=== PATIENT | male | born 1975 | race Two or more races ===

== ENCOUNTER 2021-10-18 11:39 | Outpatient (REF) | payer OTHER, SELFPAY ==
[2021-10-18 14:12] LABS: COVID-19 Test Positive (Negative)
== END 2021-10-18 11:40 | disposition home or self-care (01) ==
LOC: HO.LAB 11:39
PROVIDERS: Visit Provider Internal Medicine
DX: Z20.822 Contact with and (suspected) exposure to COVID-19 (principal)
CPT/HCPCS: 87635; C9803

== ENCOUNTER 2022-12-17 09:28 | Outpatient (REF) | payer OTHER, SELFPAY ==
--- NOTE | ~2022-12-17 | XR_ITS ---
EXAMINATION: XR FOOT, BILATERAL XR HAND/WRIST, BILATERAL CLINICAL INDICATION: Rheumatoid arthritis. Pain. COMPARISON: None. TECHNIQUE: 3 views each foot and 4 views each hand/wrist. FINDINGS: LEFT FOOT: The IP and MCP joint spaces are maintained normal. No bony erosive changes. The ankle mortise and subtalar joints are normal. There is a moderate size calcaneal heel and retrocalcaneal spurs. RIGHT FOOT: The interphalangeal and MCP joints are maintained normal. No visible acute fracture or dislocation seen. The ankle mortise and subtalar joints are normal. A small calcaneal heel and a large retrocalcaneal enthesophyte. LEFT HAND/WRIST: There is an old ulnar styloid process fracture. The carpal bones, carpometacarpal and interphalangeal joints are maintained normal. Mild reduction in the PIP and DIP joint spaces with mild periarticular spurring 2nd and 3rd joints. No visible acute fracture or bony abnormality. The soft tissues are normal. RIGHT HAND/WRIST: The right hand and wrist joints are maintained normal.. There is mild degenerative periarticular spurring DIP joint 5th digit. No acute fracture or dislocation seen. XR/XR foot RT min 3V IMPRESSION: 1. Unremarkable bilateral foot exam. 2. Mild degenerative changes DIP joints as described above in both hands. 3. Old ulnar styloid process fracture left hand. No acute fracture or dislocation seen.
--- NOTE | ~2022-12-17 | XR_ITS ---
EXAMINATION: XR FOOT, BILATERAL XR HAND/WRIST, BILATERAL CLINICAL INDICATION: Rheumatoid arthritis. Pain. COMPARISON: None. TECHNIQUE: 3 views each foot and 4 views each hand/wrist. FINDINGS: LEFT FOOT: The IP and MCP joint spaces are maintained normal. No bony erosive changes. The ankle mortise and subtalar joints are normal. There is a moderate size calcaneal heel and retrocalcaneal spurs. RIGHT FOOT: The interphalangeal and MCP joints are maintained normal. No visible acute fracture or dislocation seen. The ankle mortise and subtalar joints are normal. A small calcaneal heel and a large retrocalcaneal enthesophyte. LEFT HAND/WRIST: There is an old ulnar styloid process fracture. The carpal bones, carpometacarpal and interphalangeal joints are maintained normal. Mild reduction in the PIP and DIP joint spaces with mild periarticular spurring 2nd and 3rd joints. No visible acute fracture or bony abnormality. The soft tissues are normal. RIGHT HAND/WRIST: The right hand and wrist joints are maintained normal.. There is mild degenerative periarticular spurring DIP joint 5th digit. No acute fracture or dislocation seen. XR/XR hand wrist LT IMPRESSION: 1. Unremarkable bilateral foot exam. 2. Mild degenerative changes DIP joints as described above in both hands. 3. Old ulnar styloid process fracture left hand. No acute fracture or dislocation seen.
--- NOTE | ~2022-12-17 | XR_ITS ---
EXAMINATION: XR FOOT, BILATERAL XR HAND/WRIST, BILATERAL CLINICAL INDICATION: Rheumatoid arthritis. Pain. COMPARISON: None. TECHNIQUE: 3 views each foot and 4 views each hand/wrist. FINDINGS: LEFT FOOT: The IP and MCP joint spaces are maintained normal. No bony erosive changes. The ankle mortise and subtalar joints are normal. There is a moderate size calcaneal heel and retrocalcaneal spurs. RIGHT FOOT: The interphalangeal and MCP joints are maintained normal. No visible acute fracture or dislocation seen. The ankle mortise and subtalar joints are normal. A small calcaneal heel and a large retrocalcaneal enthesophyte. LEFT HAND/WRIST: There is an old ulnar styloid process fracture. The carpal bones, carpometacarpal and interphalangeal joints are maintained normal. Mild reduction in the PIP and DIP joint spaces with mild periarticular spurring 2nd and 3rd joints. No visible acute fracture or bony abnormality. The soft tissues are normal. RIGHT HAND/WRIST: The right hand and wrist joints are maintained normal.. There is mild degenerative periarticular spurring DIP joint 5th digit. No acute fracture or dislocation seen. XR/XR foot LT min 3V IMPRESSION: 1. Unremarkable bilateral foot exam. 2. Mild degenerative changes DIP joints as described above in both hands. 3. Old ulnar styloid process fracture left hand. No acute fracture or dislocation seen.
--- NOTE | ~2022-12-17 | XR_ITS ---
EXAMINATION: XR FOOT, BILATERAL XR HAND/WRIST, BILATERAL CLINICAL INDICATION: Rheumatoid arthritis. Pain. COMPARISON: None. TECHNIQUE: 3 views each foot and 4 views each hand/wrist. FINDINGS: LEFT FOOT: The IP and MCP joint spaces are maintained normal. No bony erosive changes. The ankle mortise and subtalar joints are normal. There is a moderate size calcaneal heel and retrocalcaneal spurs. RIGHT FOOT: The interphalangeal and MCP joints are maintained normal. No visible acute fracture or dislocation seen. The ankle mortise and subtalar joints are normal. A small calcaneal heel and a large retrocalcaneal enthesophyte. LEFT HAND/WRIST: There is an old ulnar styloid process fracture. The carpal bones, carpometacarpal and interphalangeal joints are maintained normal. Mild reduction in the PIP and DIP joint spaces with mild periarticular spurring 2nd and 3rd joints. No visible acute fracture or bony abnormality. The soft tissues are normal. RIGHT HAND/WRIST: The right hand and wrist joints are maintained normal.. There is mild degenerative periarticular spurring DIP joint 5th digit. No acute fracture or dislocation seen. XR/XR hand wrist RT IMPRESSION: 1. Unremarkable bilateral foot exam. 2. Mild degenerative changes DIP joints as described above in both hands. 3. Old ulnar styloid process fracture left hand. No acute fracture or dislocation seen.
[2022-12-17 11:13] LABS: MANUAL DIFF FLAG NO
[2022-12-17 11:40] LABS: Basophils Absolute Auto 0.1 X10*3/uL (0.0-0.2); Basophils Percent Auto 0.7 % (0-2); Eosinophils Absolute Auto 0.7 X10*3/uL (0.0-0.4); Eosinophils Percent Auto 7.4 % (0-4); Hematocrit 41.5 % (42.0-52.0); Hemoglobin 13.9 g/dl (14.0-18.0); Imm Gran Abs Auto 0.11 X10*3/uL (0.00-0.03); Imm Gran Pct Auto 1.2 % (0.0-0.4); Lymphocytes Absolute Auto 1.4 X10*3/uL (1.2-4.9); Lymphocytes Percent Auto 15.6 % (20-40); Mean Corpuscular HGB Conc 33.5 g/dl (31.0-36.0); Mean Corpuscular Hemoglobin 28.4 pg (27.0-33.0); Mean Corpuscular Volume 84.7 fL (80.0-98.0); Mean Platelet Volume 9.7 fL (9.4-12.4); Monocytes Absolute Auto 0.5 X10*3/uL (0.1-1.2); Monocytes Percent Auto 5.3 % (2-11); Neutrophils Absolute Auto 6.3 x10*3/uL (2.0-8.3); Neutrophils Percent Auto 69.8 % (45-73); Platelet Count 268 X10*3/uL (160-400); Red Cell Distribution Width 14.6 % (11.0-16.0); White Blood Count 9.1 X10*3/uL (4.8-10.8)
[2022-12-17 11:42] LABS: Appearance Urine Clear; Color Urine Yellow; Glucose Urine UA Negative (Negative); Leukocyte Esterase Urine Negative (Negative); Nitrite Urine Negative (Negative); PH 5.5 (5.0-9.0); Specific Gravity - Urine 1.015 (1.005-1.025); Urine Blood Negative (Negative); Urine Ketones Negative (Negative); Urine Protein Negative (Neg-Trace)
[2022-12-17 11:45] LABS: Bacteria Urine None Seen (None Seen); Hyaline Casts Urine 0-2 /LPF (0-2); RBC Urine 0-2 /HPF (0-2); Squamous Epithelial Cell Urine 0-2 /HPF (0-2); WBC Urine 0-5 /HPF (0-5)
[2022-12-17 12:08] LABS: Creatinine Urine 156.02 mg/dL; Total Protein Urine Random < 7 mg/dL (<12)
[2022-12-17 12:40] LABS: Erythrocyte Sedimentation Rate 14 MM/HR (0-15)
[2022-12-17 13:11] LABS: Alanine Aminotransferase 56 U/L (0-40); Albumin Level 4.3 g/dL (3.5-5.0); Alkaline Phosphatase 71 U/L (39-117); Anion Gap 13 (12-20); Aspartate Amino Transferase 27 U/L (5-37); Bilirubin Total 0.8 mg/dL (0.0-1.0); Blood Urea Nitrogen 14 mg/dL (9-16); C Reactive Protein 0.38 mg/dL (< or = 0.50); Calcium 8.9 mg/dL (8.4-10.2); Carbon Dioxide 27 mmol/L (22-29); Chloride 106 mmol/L (96-108); Estimated Glomerular Filt Rate > 60; Glucose Random 89 mg/dL (60-115); Potassium 4.1 mmol/L (3.3-5.1); Rheumatoid Factor < 13.0 IU/mL (<15.0); Sodium 142 mmol/L (135-145); Total Protein 6.9 g/dL (6.5-8.0)
[2022-12-17 14:21] LABS: Estimated Average Glucose 105 mg/dL; Hemoglobin A1c % 5.3 %
[2022-12-18 04:28] LABS: HBS Num1 0.04 mIU/mL (0-7.99); HBc Num1 0.04 S/CO (0.00-0.79); HBsAGNum1 0.31 S/CO (0.00-0.99); Hepatitis A Antibody IgM 0.19 Index (0-0.79); Hepatitis B Core Antibody Nonreactive (Nonreactive); Hepatitis B Surface Antigen Negative (Negative); ~HepC Num1 0.08 S/CO (0.00-0.79); ~Hepatitis A Antibody IgM Nonreactive (Nonreactive); ~Hepatitis B Surface Antibody NONREACTIVE (Nonreactive); ~Hepatitis C Antibody Nonreactive (Nonreactive)
[2022-12-18 15:09] LABS: IgA 241 mg/dL (47-310); IgG 1007 mg/dL (600-1640); IgM 67 mg/dL (50-300)
[2022-12-18 20:43] LABS: Anti DNA DS Antibody 8 IU/mL; Antibody to SS-A Antigen <1.0 NEG AI (<1.0 NEG); Antibody to SS-B Antigen <1.0 NEG AI (<1.0 NEG); SM/Ribonucleoprotein Ab <1.0 NEG AI (<1.0 NEG); Smith Protein <1.0 NEG AI (<1.0 NEG)
[2022-12-19 09:28] LABS: Complement C3 159 mg/dL (82-185)
[2022-12-19 11:48] LABS: Cyclic Citrullinated Peptide <16 UNITS
[2022-12-19 19:18] LABS: Prot Elec - Albumin 4.3 g/dL (3.8-4.8); Prot Elec - Alpha1 0.2 g/dL (0.2-0.3); Prot Elec - Alpha2 0.8 g/dL (0.5-0.9); Prot Elec - Beta 1 0.4 g/dL (0.4-0.6); Prot Elec - Beta 2 0.4 g/dL (0.2-0.5); Prot Elec - Total Protein 7.1 g/dL (6.1-8.1)
[2022-12-20 06:13] LABS: PTT (LAC) Screen 35 sec (<=40)
[2022-12-21 12:28] LABS: DNAds, Crithidia Antibody Negative (Negative)
[2022-12-23 12:57] LABS: Anti Nuclear Antibody Screen POSITIVE (NEGATIVE)
[2022-12-23 21:09] LABS: Beta-2 Glycoprotein IgA 4.6 U/mL (<20.0); Beta-2 Glycoprotein IgG <2.0 U/mL (<20.0); Beta-2 Glycoprotein IgM <2.0 U/mL (<20.0)
[2022-12-29 16:19] LABS: Cardiolipin IgG Ab <2.0 GPL-U/mL (<20.0); Cardiolipin IgM Ab <2.0 MPL-U/mL (<20.0)
== END 2022-12-17 09:29 | disposition home or self-care (01) ==
LOC: HO.LAB 09:28
PROVIDERS: PCP Physician Assistant Medical; Visit Provider Student in an Organized Health Care Education/Training Program
DX: Z11.59 Encounter for screening for other viral diseases (principal); Z13.1 Encounter for screening for diabetes mellitus; D68.61 Antiphospholipid syndrome; M32.9 Systemic lupus erythematosus, unspecified; M25.541 Pain in joints of right hand; F41.0 Panic disorder [episodic paroxysmal anxiety]; M06.9 Rheumatoid arthritis, unspecified; R76.8 Other specified abnormal immunological findings in serum; M1A.09X0 Idiopathic chronic gout, multiple sites, without tophus (tophi)
CPT/HCPCS: 36415; 73110; 73130; 73630; 80053; 81001; 82550; 82784; 83036; 84156; 84165; 84550; 85025; 85597; 85613; 85652; 85730; 86038; 86039; 86140; 86146; 86147; 86160; 86200; 86225; 86235; 86255; 86334; 86431; 86704; 86706; 86709; 86803; 87340; 99202

== ENCOUNTER → 2023-01-29 10:12 | Outpatient (BNVA) | payer OTHER, SELFPAY | PROVIDERS: PCP Physician Assistant Medical; Visit Provider Student in an Organized Health Care Education/Training Program | DX: R76.8 Other specified abnormal immunological findings in serum (principal); M1A.09X0 Idiopathic chronic gout, multiple sites, without tophus (tophi); M79.7 Fibromyalgia | CPT/HCPCS: 99212 ==

== ENCOUNTER 2023-05-06 10:35 | Outpatient (AMB) | payer OTHER, SELFPAY ==
[2023-05-06 10:41] VITALS: BP 110/72; PULSE 84; RESP 18; TEMP 36.9; O2SAT 98; BMI 33.1
--- NOTE | 2023-05-06 10:41 | A.OFFVIS_ITS ---
Intake Vital Signs 05/06/23 10:41 Height 5 ft 8 in Weight 218 lb BMI 33.1 BP 110/72 Blood Pressure Location Rt brachial Position Sitting Respiration 18 Pulse 84 Pulse Source Pulse Oximeter Temp 98.4 F Temp Source Temporal Artery Scan Pulse Oximetry (%) 98 Oxygen Delivery Method Room Air Intake Visit Reasons: KRISTAN +ve - Confirmed Allergies propylene glycol Allergy (Verified 05/06/23 10:50) Rash Medication List - Last Reconciled 05/06/23 by Caleb Cavanaugh MD allopurinol 300 mg PO DAILY cetirizine 10 mg PO DAILY duloxetine 60 mg (2 x 30 mg) PO .nightly hydrocortisone 5 mg PO QID levothyroxine 75 mcg PO DAILY lisinopril 20 mg PO DAILY rituximab-pvvr IV HPI HPI Comments History of Present Illness Details 47-year-old male with positive KRISTAN/ITP returns for follow-up. Patient stated that he is currently taking duloxetine 60 mg nightly which seems to be at least somewhat helpful. Continues to have diffuse pain however. Initial history: 47-year-old male with a past medical history of ITP presents for evaluation of diffuse pain. Patient has had diffuse pain for years. Specially affecting his hands, wrists, ankles, feet. In 2020 he presented the hospital with petechial hemorrhages and severe thrombocytopenia. He was diagnosed with ITP. He was started on steroids and IVIG. He relapsed 2 weeks after IVIG and required rituximab. He got rituximab in the fall of 2020 and had another round of 4 weekly doses of rituximab completed 2 weeks ago. Over the last year patient has been having worsening fatigue and pain. His labs showed low free T4. He was eventually evaluated by Endocrinology in an MRI of the brain showed multiple pituitary micro adenomas. He was started on hydrocortisone and levothyroxine with some improvement of his symptoms. Patient states that he gets intermittent swelling of his wrists and knuckles. He states that overall he feels better. Feels that duloxetine might have helped with his anxiety and depression. He cannot really tell whether it helped his joints. He denies any skin rashes. Denies any blood or frothy urine. His grandmother had rheumatoid arthritis. Years history of submandibular gland stone, was evaluated by ENT and was advised against any intervention. States he was diagnosed with gout more than 20 years ago and has not had any gout flares in a long time except for 1 flare last fall. 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 Review of Systems Const Reports fatigue and Reports weakness Musc Reports arthralgias and Reports muscle weakness Neuro Reports weakness Endo Reports fatigue Physical Exam Vital Signs: Last Vital Signs Temp 98.4 F 05/06/23 10:41 Pulse 84 05/06/23 10:41 Resp 18 05/06/23 10:41 BP 110/72 05/06/23 10:41 Pulse Ox 98 05/06/23 10:41 Oxygen Delivery Method Room Air 05/06/23 10:41 BMI result Body Mass Index 33.1 Const General: cooperative, healthy appearing and comfortable Nutritional Appearance: obese Orientation/consciousness: patient oriented x3 Limitations: no limitations HEENT Other: Mildly dry oral mucosa Head: Yes normocephalic and Yes atraumatic Resp Effort & Inspection: normal respiratory effort and able to speak in complete sentences Neuro General: patient oriented x3 Extrem Other: Right wrist tenderness to palpation and pain with full flexion and full extension Extensor tendon tenderness bilaterally Left wrist pain with full flexion and extension 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 lost response after 2 weeks. RTX (4 weekly doses given in 06/2021 & 11/28) HCQ 05/28 Code(s): R76.8 - Other specified abnormal immunological findings in serum Plan: This is a 47-year-old male with complex past medical history including anxiety, depression, gout, JULIA, recently diagnosed pituitary microadenomas, ITP was referred for evaluation of a positive KRISTAN and diffuse pain. Upon evaluation patient has multiple tender points consistent with fibromyalgia. However he has more tenderness in his hands and wrists. Bilateral hand ultrasound shows extensor compartment tenosynovitis. Will need to start a DMARD for inflammatory arthritis. Discussed risks and benefits of hydroxychloroquine. Start hydroxychloroquine 200 mg Twice daily He does not have any other signs of active SLE. He has borderline positive dsDNA. However he might not have any overt signs of autoimmune rheumatic disease as he recently received rituximab. (2) Gout: Code(s): M10.9 - Gout, unspecified Qualifiers: Gout site: multiple sites Gout etiology: idiopathic Chronicity: chronic Presence of tophus: without tophus Qualified Code(s): M1A.09X0 - Id iopathic chronic gout, multiple sites, without tophus (tophi) Plan: For patient was diagnosed more than 20 years ago. Has not had flares for years except for 1 flare in the fall of 2021. He has been on allopurinol for many years. Uric acid is 6.0, at target. Continue allopurinol 300 mg daily. Check uric acid before next visit (3) Fibromyalgia, primary: Code(s): M79.7 - Fibromyalgia Plan: We had discussed fibromyalgia management before. I advised patient to keep doing light exercises. Duloxetine 60 mg nightly seems to be at least partially helpful. Continue duloxetine 60 mg nightly Plan I spent 29 minutes reviewing patient's chart, evaluating patient, ordering diagnostic workup, counseling patient and documenting in the chart Orders: Orders Comprehensive Met. Panel 3 Months R76.8 - Other specified abnormal immunological findings in serum C Reactive Protein 3 Months R76.8 - Other specified abnormal immunological findings in serum Protein Creatinine Ratio, Ur 3 Months R76.8 - Other specified abnormal immunological findings in serum Complete Blood Count Auto Diff 3 Months R76.8 - Other specified abnormal immunological findings in serum Erythrocyte Sedimentation Rate 3 Months R76.8 - Other specified abnormal immunological findings in serum Complement C3 3 Months R76.8 - Other specified abnormal immunological findings in serum Complement C4 3 Months R76.8 - Other specified abnormal immunological findings in serum Anti DNA DS Antibody 3 Months R76.8 - Other specified abnormal immunological findings in serum UA w Microscopic 3 Months R76.8 - Other specified abnormal immunological findings in serum Uric Acid 3 Months M10.9 - Gout, unspecified Referrals Ophthalmology Referral [id number] - Other prison (current) drug therapy Medications: New hydroxychloroquine 200 mg PO BID 60 tabs 2RF Coding Level of Care Code Est Pt Level 4 (27311) Diagnoses KRISTAN positive R76.8 Gout M1A.09X0 Gout site: multiple sites Gout etiology: idiopathic Chronicity: chronic Presence of tophus: without tophus Fibromyalgia, primary M79.7
== END 2023-05-06 11:28 | disposition home or self-care (01) ==
PROVIDERS: PCP Physician Assistant Medical; Visit Provider Student in an Organized Health Care Education/Training Program
DX: R76.8 Other specified abnormal immunological findings in serum (principal); M1A.09X0 Idiopathic chronic gout, multiple sites, without tophus (tophi); M79.7 Fibromyalgia
CPT/HCPCS: 99214

== ENCOUNTER → 2023-05-06 10:35 | Outpatient (BNVA) | payer OTHER, SELFPAY | PROVIDERS: PCP Physician Assistant Medical; Visit Provider Student in an Organized Health Care Education/Training Program | DX: M1A.09X0 Idiopathic chronic gout, multiple sites, without tophus (tophi) (principal); M79.7 Fibromyalgia; R76.8 Other specified abnormal immunological findings in serum | CPT/HCPCS: 99212 ==

== ENCOUNTER 2023-08-20 13:39 | Outpatient (AMB) | payer OTHER, SELFPAY ==
[2023-08-20 13:43] VITALS: BP 114/72; PULSE 73; TEMP 36.6; O2SAT 96; BMI 33.9
--- NOTE | 2023-08-20 13:43 | A.OFFVIS_ITS ---
Intake Vital Signs 08/20/23 13:43 Height 5 ft 8 in Weight 222 lb 10.67 oz BMI 33.9 BP 114/72 Blood Pressure Location Rt brachial Position Sitting Pulse 73 Pulse Source Pulse Oximeter Temp 97.9 F Temp Source Skin Pulse Oximetry (%) 96 Intake Visit Reasons: SLE Intake Note: Pt last seen 05/06/23, presents today for follow up and test results. Allopurinol 300mg daily and Plaquenil 200mg bid Anesthesia Director Required: No Accompanied by: Self / Same As Patient Allergies propylene glycol Allergy (Verified 08/20/23 13:45) Rash Medication List - Last Reconciled 08/20/23 by Caleb Cavanaugh MD allopurinol 300 mg PO DAILY cetirizine 10 mg PO DAILY duloxetine 60 mg (2 x 30 mg) PO .nightly hydrocortisone 5 mg PO QID hydroxychloroquine 200 mg PO BID levothyroxine 75 mcg PO DAILY lisinopril 20 mg PO DAILY rituximab-pvvr IV HPI HPI Comments History of Present Illness Details 47-year-old male with positive KRISTAN/ITP r eturns for follow-up. Patient started taking hydroxychloroquine 200 mg Twice daily 2 months ago. States that he feels noticeable improvement and his pain and stiffness especially of his hands. He is now able to be more active and open jars. States that he has been having pain in his right heel. He has not had any further rituximab infusions since 11/2022, states that his platelets have been within normal Initial history: 47-year-old male with a past medical history of ITP presents for evaluation of diffuse pain. Patient has had diffuse pain for years. Specially affecting his hands, wrists, ankles, feet. In 2020 he presented the hospital with petechial hemorrhages and severe thrombocytopenia. He was diagnosed with ITP. He was started on steroids and IVIG. He relapsed 2 weeks after IVIG and required rituximab. He got rituximab in the fall of 2020 and had another round of 4 weekly doses of rituximab completed 2 weeks ago. Over the last year patient has been having worsening fatigue and pain. His labs showed low free T4. He was eventually evaluated by Endocrinology in an MRI of the brain showed multiple pituitary micro adenomas. He was started on hydrocortisone and levothyroxine with some improvement of his symptoms. Patient states that he gets intermittent swelling of his wrists and knuckles. He states that overall he feels better. Feels that duloxetine might have helped with his anxiety and depression. He cannot really tell whether it helped his joints. He denies any skin rashes. Denies any blood or frothy urine. His grandmother had rheumatoid arthritis. Years history of submandibular gland stone, was evaluated by ENT and was advised against any intervention. States he was diagnosed with gout more than 20 years ago and has not had any gout flares in a long time except for 1 flare last fall. [facility] Medical History (Updated 08/20/23 @ 14:49 by Caleb Cavanaugh MD) Pituitary microadenoma Idiopathic thrombocytopenic purpura (ITP) Normal endoscopic ultrasound of upper GI tract Gout Panic attacks Depression with anxiety Hypertension Obstructive sleep apnea Elevated liver enzymes Severe obesity Surgical History H/O colonoscopy Family History Mother Gout Arthritis Father CAD (coronary artery disease) Diabetes Hypertension Brother Diabetes Lung cancer Social History Household Members: Spouse and Children Alcohol intake: never Patient Tobacco Use Status: Never used Tobacco 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 Review of Systems Const Reports fatigue and Reports weakness Musc Reports arthralgias and Reports muscle weakness Neuro Reports weakness Endo Reports fatigue Physical Exam Vital Signs: Last Vital Signs Temp 97.9 F 08/20/23 13:43 Pulse 73 08/20/23 13:43 BP 114/72 08/20/23 13:43 Pulse Ox 96 08/20/23 13:43 BMI result Body Mass Index 33.9 Const General: cooperative, healthy appearing and comfortable Nutritional Appearance: obese Orientation/consciousness: patient oriented x3 Limitations: no limitations HEENT Head: Yes normocephalic and Yes atraumatic Resp Effort & Inspection: normal respiratory effort and able to speak in complete sentences Neuro General: patient oriented x3 Extrem Other: Right wrist tenderness to palpation and pain with full flexion and full extension Left wrist pain with full flexion and extension Few tender MCPs and PIPs bilaterally Normal drop forger strength bilaterally Positive MTP squeeze test on the left Right heel tenderness to palpation Diffuse fibromyalgia tender points Results Reviewed Results Reviewed: Labs 07/2022 KRISTAN 1-320 homogeneous Bilateral hand and wrist ultrasound 02/2023 Impression: 1. Mild bilateral tenosynovitis of the 4th extensor compartments, with increased vascularity.?? 2. Trace fluid in the right 4th metacarpophalangeal joint.?? 3. Fluid adjacent to the right flexor tendon of the 3rd MCP/PIP 4. No joint effusion, synovitis or tendinitis Assessment & Plan Assessment & Plan (1) SLE (systemic lupus erythematosus): Comment: ITP dx 05/2021 +KRISTAN + DsDNA, inflammatory arthritis treated with steroids & IVIG. lost response after 2 weeks. RTX (4 weekly doses given in 06/2021 & 11/28) HCQ 06/28 partially effective Code(s): M32.9 - Systemic lupus erythematosus, unspecified Plan: This is a 47-year-old male with mild SLE who presents for follow-up. Started hydroxychloroquine 200 mg Twice daily last visit with noticeable improvement. Continue hydroxychloroquine 200 mg Twice daily for 4 more months. Re-evaluate next visit. Labs before next visit in 4 months (2) Gout: Code(s): M10.9 - Gout, unspecified Qualifiers: Gout site: multiple sites Gout etiology: idiopathic Chronicity: chronic Presence of tophus: without tophus Qualified Code(s): M1A.09X0 - Idiopathic chronic gout, multiple sites, without tophus (tophi) Plan: For patient was diagnosed more than 20 years ago. Has not had flares for years except for 1 flare in the fall of 2021. He has been on allopurinol for many years. Uric acid is 6.0, at target. Continue allopurinol 300 mg daily. Check uric acid before next visit (3) Fibromyalgia, primary: Code(s): M79.7 - Fibromyalgia Plan: We had discussed fibromyalgia management before. I advised patient to keep doing light exercises. Duloxetine 60 mg nightly seems to be at least partially helpful. Continue duloxetine 60 mg nightly (4) Pain of right heel: Code(s): M79.671 - Pain in right foot Plan: Follow-up with Podiatry (5) Long-term use of hydroxychloroquine: Code(s): Z79.899 - Other intermission coordinator (current) drug therapy Plan: Patient stated that he was recently evaluated by [facility]. Was told everything is within normal and scheduled for a follow-up visit in 6 months. Continue to follow-up with ophthalmology Plan I spent 29 minutes reviewing patient's chart, evaluating patient, ordering diagnostic workup, counseling patient and documenting in the chart Medications: Refilled hydroxychloroquine 200 mg PO BID 180 tabs 1RF Coding Level of Care Code Est Pt Level 4 (27364) Diagnoses SLE (systemic lupus erythematosus) M32.9 Idiopathic chronic gout of multiple sites without tophus M1A.09X0 Gout site: multiple sites Gout etiology: idiopathic Chronicity: chronic Presence of tophus: without tophus Fibromyalgia, primary M79.7 Pain of right heel M79.671 Long-term use of hydroxychloroquine Z79.899
== END 2023-08-20 14:19 | disposition home or self-care (01) ==
PROVIDERS: PCP Physician Assistant Medical; Visit Provider Student in an Organized Health Care Education/Training Program
DX: M32.9 Systemic lupus erythematosus, unspecified (principal); M1A.09X0 Idiopathic chronic gout, multiple sites, without tophus (tophi); M79.7 Fibromyalgia; M79.671 Pain in right foot; Z79.899 Other long term (current) drug therapy
CPT/HCPCS: 99214

== ENCOUNTER → 2023-08-20 13:39 | Outpatient (BNVA) | payer OTHER, SELFPAY | PROVIDERS: PCP Physician Assistant Medical; Visit Provider Student in an Organized Health Care Education/Training Program | DX: R76.8 Other specified abnormal immunological findings in serum (principal); D69.3 Immune thrombocytopenic purpura; M1A.09X0 Idiopathic chronic gout, multiple sites, without tophus (tophi); M79.7 Fibromyalgia; M79.671 Pain in right foot; Z79.899 Other long term (current) drug therapy | CPT/HCPCS: 99212 ==

== ENCOUNTER 2023-12-23 13:35 | Outpatient (AMB) | payer OTHER, SELFPAY ==
--- NOTE | 2023-12-23 13:40 | MHC.OFFVIS ---
Intake Vital Signs 12/23/23 13:41 Height 5 ft 8 in Weight 229 lb 15.074 oz BMI 35.0 BP 112/64 Blood Pressure Location Rt brachial Position Sitting Pulse 74 Pulse Source Pulse Oximeter Pulse Oximetry (%) 97 Oxygen Delivery Method Room Air Intake Visit Reasons: SLE Intake Note: Patient last seen 08/20/23 presents today for follow up. Director Outpatient Services Required: No Accompanied by: Spouse, Daughter Allergies propylene glycol Allergy (Verified 12/23/23 13:42) Rash Medication List - Last Reconciled 12/23/23 by Caleb Cavanaugh MD allopurinol 300 mg PO DAILY cetirizine 10 mg PO DAILY duloxetine 60 mg (2 x 30 mg) PO .each night hydrocortisone 5 mg PO QID hydroxychloroquine 200 mg PO BID levothyroxine 75 mcg PO DAILY lisinopril 20 mg PO DAILY prednisone 20 mg PO DAILY rituximab-pvvr IV HPI HPI Comments History of Present Illness Details 47-year-old male with positive KRISTAN/ITP returns for follow-up. He is on hydroxychloroquine 200 mg Twice daily. States that he has done much better overall since starting the hydroxychloroquine. Better strength. Now able to open bottles but continues to have few aches and pains. Feels that his hands and fingers are swollen. He has electric shock sensation going up and down his arms. Initial history: 47-year-old male with a past medical history of ITP presents for evaluation of diffuse pain. Patient has had diffuse pain for years. Specially affecting his hands, wrists, ankles, feet. In 2020 he presented the hospital with petechial hemorrhages and severe thrombocytopenia. He was diagnosed with ITP. He was started on steroids and IVIG. He relapsed 2 weeks after IVIG and required rituximab. He got rituximab in the fall of 2020 and had another round of 4 weekly doses of rituximab completed 2 weeks ago. Over the last year patient has been having worsening fatigue and pain. His labs showed low free T4. He was eventually evaluated by Endocrinology in an MRI of the brain showed multiple pituitary micro adenomas. He was started on hydrocortisone and levothyroxine with some improvement of his symptoms. Patient states that he gets intermittent swelling of his wrists and knuckles. He states that overall he feels better. Feels that duloxetine might have helped with his anxiety and depression. He cannot really tell whether it helped his joints. He denies any skin rashes. Denies any blood or frothy urine. His grandmother had rheumatoid arthritis. Years history of submandibular gland stone, was evaluated by ENT and was advised against any intervention. States he was diagnosed with gout more than 20 years ago and has not had any gout flares in a long time except for 1 flare last fall. 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 Review of Systems Musc Reports arthralgias, Reports muscle weakness and Reports tingling Neuro Reports tingling and Reports paresthesias Physical Exam Vital Signs: Last Vital Signs Pulse 74 12/23/23 13:41 BP 112/64 12/23/23 13:41 Pulse Ox 97 12/23/23 13:41 Oxygen Delivery Method Room Air 12/23/23 13:41 BMI result Body Mass Index 35.0 Const General: cooperative, healthy appearing and comfortable Nutritional Appearance: obese Orientation/consciousness: patient oriented x3 Limitations: no limitations HEENT Head: Yes normocephalic and Yes atraumatic Resp Effort & Inspection: normal respiratory effort and able to speak in complete sentences Neuro General: patient oriented x3 Extrem Other: Right wrist tenderness to palpation and pain with full flexion and full extension Left wrist pain with full flexion and extension Few tender MCPs and PIPs bilaterally Bilateral 4th and 5th flexor tendon tenderness Normal precision assembler strength bilaterally Bilateral positive Tinel sign with electric shock sensation radiating towards thumb Right heel tenderness to palpation Diffuse fibromyalgia tender points Results Reviewed Results Reviewed: Labs 07/2022 KRISTAN 1-320 homogeneous Bilateral hand and wrist ultrasound 02/2023 Impression: 1. Mild bilateral tenosynovitis of the 4th extensor compartments, with increased vascularity.?? 2. Trace fluid in the right 4th metacarpophalangeal joint.?? 3. Fluid adjacent to the right flexor tendon of the 3rd MCP/PIP 4. No joint effusion, synovitis or tendinitis Assessment & Plan Assessment & Plan (1) SLE (systemic lupus erythematosus): Comment: ITP dx 05/2021 +KRISTAN + DsDNA, inflammatory arthritis treated with steroids & IVIG. lost response after 2 weeks. RTX (4 weekly doses given in 06/2021 & 11/28) HCQ 06/28 partially effective Code(s): M32.9 - Systemic lupus erythematosus, unspecified Plan: This is a 48-year-old male with mild SLE who presents for follow-up. On hydroxychloroquine 200 mg Twice daily with noticeable improvement. On exam however continues to have some mildly puffy fingers, few flexor tendon tenderness. Start prednisone 20 mg daily as a therapeutic trial Continue hydroxychloroquine 200 mg Twice daily Re-evaluate next visit. follow-up in 2 weeks (2) Paresthesia of hand, bilateral: Code(s): R20.2 - Paresthesia of skin Plan: Check bilateral upper extremity EMG/NCV to evaluate for compression neuropathy (3) Gout: Code(s): M10.9 - Gout, unspecified Qualifiers: Gout site: multiple sites Gout etiology: idiopathic Chronicity: chronic Presence of tophus: without tophus Qualified Code(s): M1A.09X0 - Idiopathic chronic gout, multiple sites, without tophus (tophi) Plan: Per patient was diagnosed more than 20 years ago. Has not had flares for years except for 1 flare in the fall of 2021. He has been on allopurinol for many years without flares. Continue allopurinol 300 mg daily. (4) Fibromyalgia, primary: Code(s): M79.7 - Fibromyalgia Plan: We had discussed fibromyalgia management before. I advised patient to keep doing light exercises. Duloxetine 60 mg nightly seems to be at least partially helpful. 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 He states that he was evaluated by [facility] and cleared to proceed with Plaquenil. Records not available to me Plan I spent 37 minutes reviewing patient's chart, evaluating patient, ordering diagnostic workup, counseling patient and documenting in the chart Orders: Orders NE electromyogram (EMG) Today R20.2 - Paresthesia of skin Medications: New prednisone 20 mg PO DAILY 21 tabs 0RF Coding Level of Care Code Est Pt Level 5 (08343) Diagnoses SLE (systemic lupus erythematosus) M32.9 Paresthesia of hand, bilateral R20.2 Idiopathic chronic gout of multiple sites without tophus M1A.09X0 Gout site: multiple sites Gout etiology: idiopathic Chronicity: chronic Presence of tophus: without tophus Fibromyalgia, primary M79.7 Pain of right heel M79.671 Long-term use of hydroxychloroquine Z79.899
[2023-12-23 13:41] VITALS: BP 112/64; PULSE 74; O2SAT 97; BMI 35.0
== END 2023-12-23 14:07 | disposition home or self-care (01) ==
PROVIDERS: PCP Student in an Organized Health Care Education/Training Program; Visit Provider Student in an Organized Health Care Education/Training Program
DX: M32.9 Systemic lupus erythematosus, unspecified (principal); R20.2 Paresthesia of skin; M1A.09X0 Idiopathic chronic gout, multiple sites, without tophus (tophi); M79.7 Fibromyalgia; M79.671 Pain in right foot; Z79.899 Other long term (current) drug therapy
CPT/HCPCS: 99214

== ENCOUNTER → 2023-12-23 13:35 | Outpatient (BNVA) | payer OTHER, SELFPAY | PROVIDERS: PCP Student in an Organized Health Care Education/Training Program; Visit Provider Student in an Organized Health Care Education/Training Program | DX: M32.9 Systemic lupus erythematosus, unspecified (principal); R20.2 Paresthesia of skin; M10.9 Gout, unspecified; M79.7 Fibromyalgia; M79.671 Pain in right foot; M1A.09X0 Idiopathic chronic gout, multiple sites, without tophus (tophi); Z79.899 Other long term (current) drug therapy | CPT/HCPCS: 99212 ==

== ENCOUNTER 2024-01-08 15:29 | Outpatient (REF) | payer OTHER, SELFPAY ==
--- NOTE | 2024-01-08 15:33 | EMG_ITS ---
Chief complaint: Nighttime hand numbness History of lupus, ITP, gout Reason for referral: Evaluate for entrapment neuropathy Referred by: Dr. Cavanaugh Procedure done: Bilateral upper extremities NCS/EMG Precautions and/or limitations: None The limb temperature was monitored continuously and remained between 32-36 degrees C during the performance of the NCS. Ulnar motor NCS was performed with moderate elbow flexion between 70-90 degrees, with across-elbow distance of 10 cm. Nerve Conduction Studies Anti Sensory Summary Table ?Stim Site NR Onset (ms) Norm Onset (ms) Peak (ms) Norm Peak (ms) O-P Amp (?V) Norm O-P Amp Site1 Site2 Delta-0 (ms) Dist (cm) [place] (m/s) Norm [place] (m/s) Left Median Anti Sensory (2nd Digit) Wrist ? 3.1 4.1 <3.6 24.1 >10 Wrist 2nd Digit 3.1 14.0 45 Right Median Anti Sensory (2nd Digit) Wrist ? 3.3 4.1 <3.6 19.9 >10 Wrist 2nd Digit 3.3 14.0 42 Right Radial Anti Sensory (Thumb) Forearm ? 1.2 1.8 <3.1 25.7 Forearm Thumb 1.2 0.0 Left Ulnar Anti Sensory (5th Digit) Wrist ? 2.2 3.1 <3.7 10.3 >15.0 Wrist 5th Digit 2.2 14.0 64 Right Ulnar Anti Sensory (5th Digit) Wrist ? 2.2 2.7 <3.7 9.0 >15.0 Wrist 5th Digit 2.2 14.0 64 Motor Summary Table ?Stim Site NR Onset (ms) Norm Onset (ms) O-P Amp (mV) Norm O-P Amp iAmp (mV) Amp (1st) (%) Site1 Site2 Delta-0 (ms) Dist (cm) [place] (m/s) Norm [place] (m/s) Left Median Motor (Abd Poll Brev) Wrist ? 4.6 <3.9 9.4 >4.5 11.6 100.0 Elbow Wrist 4.2 23.0 55 >45 Elbow ? 8.8 7.8 10.0 83.0 Right Median Motor (Abd Poll Brev) Wrist ? 4.2 <3.9 7.8 >4.5 10.1 100.0 Elbow Wrist 4.5 22.0 49 >45 Elbow ? 8.7 5.0 6.6 64.1 Left Ulnar Motor (Abd Dig Minimi) Wrist ? 2.7 <3.0 5.1 >5 7.5 100.0 B Elbow Wrist 3.9 21.0 54 >45 B Elbow ? 6.6 5.0 7.1 98.0 A Elbow B Elbow 1.7 10.0 59 >45 A Elbow ? 8.3 4.6 6.6 90.2 Right Ulnar Motor (Abd Dig Minimi) Wrist ? 2.4 <3.0 4.8 >5 7.2 100.0 B Elbow Wrist 3.5 20.5 59 >45 B Elbow ? 5.9 4.7 6.5 97.9 A Elbow B Elbow 1.6 10.0 63 >45 A Elbow ? 7.5 4.5 6.2 93.8 Left Ulnar Motor (FDI) Wrist ? 3.4 <3.0 7.7 >5 9.5 100.0 B Elbow Wrist 4.0 22.0 55 >45 B Elbow ? 7.4 8.4 10.4 109.1 A Elbow B Elbow 1.6 10.0 63 >45 A Elbow ? 9.0 9.4 11.7 122.1 Right Ulnar Motor (FDI) Wrist ? 4.0 <3.0 5.4 >5 6.5 100.0 B Elbow Wrist 3.7 21.0 57 >45 B Elbow ? 7.7 5.3 6.5 98.1 A Elbow B Elbow 1.1 10.0 91 >45 A Elbow ? 8.8 5.1 6.4 94.4 EMG ?Side Muscle Nerve Root Ins Act Fibs Psw Amp Dur Poly Recrt Int Pat Comment Right 1stDorInt Ulnar C8-T1 Nml Nml Nml Nml Nml 0 Nml Complete Right FlexCarRad Median C6-7 Nml Nml Nml Nml Nml 0 Nml Complete Right Biceps Musculocut C5-6 Nml Nml Nml Nml Nml 0 Nml Complete Right Triceps Radial C6-7-8 Nml Nml Nml Nml Nml 0 Nml Complete Right Deltoid Axillary C5-6 Nml Nml Nml Nml Nml 0 Nml Complete Left 1stDorInt Ulnar C8-T1 Nml Nml Nml Nml Nml 0 Nml Complete Left FlexCarRad Median C6-7 Nml Nml Nml Nml Nml 0 Nml Complete Left Biceps Musculocut C5-6 Nml Nml Nml Nml Nml 0 Nml Complete Left Triceps Radial C6-7-8 Nml Nml Nml Nml Nml 0 Nml Complete Left Deltoid Axillary C5-6 Nml Nml Nml Nml Nml 0 Nml Complete Left FlexCarpiUln Ulnar C8,T1 Incr 1+ 1+ Nml Nml 0 Nml Complete Right FlexCarpiUln Ulnar C8,T1 Nml Nml Nml Nml Nml 0 Nml Complete Paraspinal EMG ?Side Muscle Nerve Root Ins Act Fibs Psw Comment Right Cervical Upper Rami Nml Nml Nml Right Cervical Mid Rami Nml Nml Nml Right Cervical Lower Rami Nml Nml Nml Left Cervical Upper Rami Nml Nml Nml Left Cervical Mid Rami Nml Nml Nml Left Cervical Lower Rami Nml Nml Nml FINDINGS: Right median motor nerve showed prolonged distal latency, normal amplitude and normal conduction velocity. Right ulnar motor nerve, recording at ADM, showed normal distal latency, small amplitude and normal conduction velocity. Right ulnar motor nerve, recording at FDI, showed prolongedl distal latency, normal amplitude and normal conduction velocity. Left median motor nerve showed prolonged distal latency, normal amplitude and normal conduction velocity. Left ulnar motor nerve, recording at FDI, showed prolonged distal latency, normal amplitude and normal conduction velocity. Bilateral ulnar sensory nerves showed small amplitude. Bilateral median sensory nerve showed prolonged peak latency. All other nerves tested were within normal. Concentric needle EMG was performed in selected muscles of the bilateral upper extremities and cervical paraspinal. Study revealed Signs of electric abnormalities as shown in the table below. Left FCU showed increased insertional activity, PSWs and fibrillations. IMPRESSION: 1. This is an abnormal study. 2. There is electrodiagnostic evidence for bilateral moderate-severe median neuropathy at the wrist, consistent with Carpal Tunnel Syndrome. 3. There is electrodiagnostic evidence for bilateral ulnar neuropathy, most likely at the elbow. 4. There is no electrodiagnostic evidence for brachial plexopathy or cervical radiculopathy. Thank you for your kind referral. Dorita Mehta MD, RG Board Certified, [place] Board [employer] and [employer] (ABPMR) Board Certified, [place] Board of Electrodiagnostic Medicine (ABEM) CODIN 23598 x 2 MTDD
== END 2024-01-08 15:30 | disposition home or self-care (01) ==
LOC: HO.NEURO 15:29
PROVIDERS: Visit Provider Student in an Organized Health Care Education/Training Program
DX: R20.2 Paresthesia of skin (principal)
CPT/HCPCS: 95886; 95911

== ENCOUNTER → 2024-01-08 15:33 | Outpatient (BNV) | payer OTHER, SELFPAY | PROVIDERS: Visit Provider Physical Medicine & Rehabilitation | DX: G56.03 Carpal tunnel syndrome, bilateral upper limbs (principal); G56.13 Other lesions of median nerve, bilateral upper limbs; G56.23 Lesion of ulnar nerve, bilateral upper limbs | CPT/HCPCS: 95886; 95911 ==

== ENCOUNTER 2024-01-13 15:36 | Outpatient (AMB) | payer OTHER, SELFPAY ==
[2024-01-13 15:41] VITALS: BP 104/62; PULSE 79; O2SAT 96; BMI 35.2
--- NOTE | 2024-01-13 15:41 | A.OFFVIS_ITS ---
Intake Vital Signs 01/13/24 15:41 Height 5 ft 8 in Weight 231 lb 7.766 oz BMI 35.2 BP 104/62 Blood Pressure Location Rt brachial Position Sitting Pulse 79 Pulse Source Pulse Oximeter Pulse Oximetry (%) 96 Oxygen Delivery Method Room Air Intake Visit Reasons: SLE/CM Intake Note: Patient last seen 12/23/23 presents today for follow up and test results. 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 He is on hydroxychloroquine 200 mg Twice daily. Last visit 3 weeks ago prednisone 20 mg daily was prescribed as a trial to see whether it would help with his bilateral hand pain. Patient states that his hand pain is about the same. There was no change. He has been feeling generally well however with prednisone with increased energy and increased eating. Overall he has been doing fairly well. He is now able to cup some light work such as painting Initial history: 47-year-old male with a past medical history of ITP presents for evaluation of diffuse pain. Patient has had diffuse pain for years. Specially affecting his hands, wrists, ankles, feet. In 2020 he presented the hospital with petechial hemorrhages and severe thrombocytopenia. He was diagnosed with ITP. He was started on steroids and IVIG. He relapsed 2 weeks after IVIG and required rituximab. He got rituximab in the fall of 2020 and had another round of 4 weekly doses of rituximab completed 2 weeks ago. Over the last year patient has been having worsening fatigue and pain. His labs showed low free T4. He was eventually evaluated by Endocrinology in an MRI of the brain showed multiple pituitary micro adenomas. He was started on hydrocortisone and levothyroxine with some improvement of his symptoms. Patient states that he gets intermittent swelling of his wrists and knuckles. He states that overall he feels better. Feels that duloxetine might have helped with his anxiety and depression. He cannot really tell whether it helped his joints. He denies any skin rashes. Denies any blood or frothy urine. His grandmother had rheumatoid arthritis. Years history of submandibular gland stone, was evaluated by ENT and was advised against any intervention. States he was diagnosed with gout more than 20 years ago and has not had any gout flares in a long time except for 1 flare last fall. 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 Review of Systems Musc Reports arthralgias and Reports tingling Neuro Reports tingling and Reports paresthesias Physical Exam Vital Signs: Last Vital Signs Pulse 79 01/13/24 15:41 BP 104/62 01/13/24 15:41 Pulse Ox 96 01/13/24 15:41 Oxygen Delivery Method Room Air 01/13/24 15:41 BMI result Body Mass Index 35.2 Const General: cooperative, healthy appearing and comfortable Nutritional Appearance: obese Orientation/consciousness: patient oriented x3 Limitations: no limitations HEENT Head: Yes normocephalic and Yes atraumatic Resp Effort & Inspection: normal respiratory effort and able to speak in complete sentences Neuro General: patient oriented x3 Extrem Other: Right wrist tenderness to palpation and pain with full flexion and full extension Left wrist pain with full flexion and extension Few tender MCPs and PIPs bilaterally Bilateral 4th and 5th flexor tendon tenderness 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 Mild bilateral tenosynovitis of the 4th extensor compartments, with increased vascularity.?? 2. Trace fluid in the right 4th metacarpophalangeal joint.?? 3. Fluid adjacent to the right flexor tendon of the 3rd MCP/PIP 4. No joint effusion, synovitis or tendinitis Assessment & Plan Assessment & Plan (1) SLE (systemic lupus erythematosus): Comment: ITP dx 05/2021 +KRISTAN + DsDNA, inflammatory arthritis treated with steroids & IVIG. lost response after 2 weeks. RTX (4 weekly doses given in 06/2021 & 11/28) HCQ 06/28 effective Code(s): M32.9 - Systemic lupus erythematosus, unspecified Plan: This is a 48-year-old male with mild SLE who presents for follow-up. Last visit 3 weeks ago prednisone 20 mg daily was prescribed as a trial to see whether it would help with bilateral hand pain. There was no improvement. His physical exam is the same. Patient has done quite well however since hydroxychloroquine was started. He has picked up some light work such as painting. Continue with hydroxychloroquine 200 mg Twice daily Labs before next visit in 4 months (2) Paresthesia of hand, bilateral: Code(s): R20.2 - Paresthesia of skin Plan: EMG/NCV showed bilateral carpal tunnel. Referred patient to hand surgeon (3) Gout: Code(s): M10.9 - Gout, unspecified Qualifiers: Gout site: multiple sites Gout etiology: idiopathic Chronicity: chronic Presence of tophus: without tophus Qualified Code(s): M1A.09X0 - Idiopathic chronic gout, multiple sites, without tophus (tophi) Plan: Per patient was diagnosed more than 20 years ago. Has not had flares for years except for 1 flare in the fall of 2021. He has been on allopurinol for many ye ars without flares. Continue allopurinol 300 mg daily. Prescribed by other providers. Will check uric acid level before next visit (4) Fibromyalgia, primary: Code(s): M79.7 - Fibromyalgia Plan: We had discussed fibromyalgia management before. I advised patient to keep doing light exercises. Duloxetine 60 mg nightly seems to be at least partially helpful. Continue duloxetine 60 mg nightly (5) Long-term use of hydroxychloroquine: Code(s): Z79.899 - Other chcf (current) drug therapy Plan: Follow-up regularly with Ophthalmology. He states that he was evaluated by [facility] and cleared to proceed with Plaquenil. Records not available to me Plan I spent 30 minutes reviewing patient's chart, evaluating patient, ordering diagnostic workup, counseling patient and documenting in the chart Orders: Orders Complete Blood Count Auto Diff 4 Months M32.9 - Systemic lupus erythematosus, unspecified UA w Microscopic 4 Months M32.9 - Systemic lupus erythematosus, unspecified Uric Acid 4 Months M1A.09X0 - Idiopathic chronic gout, multiple sites, without tophus (tophi) Comprehensive Met. Panel 4 Months M32.9 - Systemic lupus erythematosus, unspecified C Reactive Protein 4 Months M32.9 - Systemic lupus erythematosus, unspecified Erythrocyte Sedimentation Rate 4 Months M32.9 - Systemic lupus erythematosus, unspecified Anti DNA DS Antibody 4 Months M32.9 - Systemic lupus erythematosus, unspecified Complement C3 4 Months M32.9 - Systemic lupus erythematosus, unspecified Complement C4 4 Months M32.9 - Systemic lupus erythematosus, unspecified Protein Creatinine Ratio, Ur 4 Months M32.9 - Systemic lupus erythematosus, unspecified Coding Level of Care Code Est Pt Level 4 (75221) Diagnoses SLE (systemic lupus erythematosus) M32.9 Paresthesia of hand, bilateral R20.2 Idiopathic chronic gout of multiple sites without tophus M1A.09X0 Gout site: multiple sites Gout etiology: idiopathic Chronicity: chronic Presence of tophus: without tophus Fibromyalgia, primary M79.7 Long-term use of hydroxychloroquine Z79.899
== END 2024-01-13 15:53 | disposition home or self-care (01) ==
PROVIDERS: Visit Provider Student in an Organized Health Care Education/Training Program
DX: M32.9 Systemic lupus erythematosus, unspecified (principal); R20.2 Paresthesia of skin; M1A.09X0 Idiopathic chronic gout, multiple sites, without tophus (tophi); M79.7 Fibromyalgia; Z79.899 Other long term (current) drug therapy
CPT/HCPCS: 99214

== ENCOUNTER → 2024-01-13 15:36 | Outpatient (BNVA) | payer OTHER, SELFPAY | PROVIDERS: Visit Provider Student in an Organized Health Care Education/Training Program | DX: M32.9 Systemic lupus erythematosus, unspecified (principal); M79.7 Fibromyalgia; M1A.09X0 Idiopathic chronic gout, multiple sites, without tophus (tophi); R20.2 Paresthesia of skin; Z79.899 Other long term (current) drug therapy | CPT/HCPCS: 99212 ==

== ENCOUNTER 2024-03-10 14:42 | Outpatient (AMB) | payer OTHER, SELFPAY ==
[2024-03-10 15:02] VITALS: BMI 35.1
--- NOTE | 2024-03-10 15:02 | MHC.OFFVIS ---
Vital Signs 03/10/24 15:02 Height 5 ft 8 in Weight 231 lb BMI 35.1 Intake Visit Reasons: N/P CTS EMG with RB Intake Note: Frederick is a 48 year old right hand dominant male who presents today as a new patient for a evaluation of his bilateral hand numbness. Numbness is off and on for 3 years. EMG was done 01/08/24. Patient reports his right hand is worse than the left. 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 Patient would like to discuss a little bit more about the surgery and he would like to know the results. Allergies propylene glycol Allergy (Verified 03/10/24 15:08) Rash Medication List - Last Reconciled 03/10/24 by Kendell Pineda PA-C allopurinol 300 mg PO DAILY cetirizine 10 mg PO DAILY duloxetine 60 mg (2 x 30 mg) PO .each night hydrocortisone 5 mg PO QID hydroxychloroquine 200 mg PO BID levothyroxine 75 mcg PO DAILY lisinopril 20 mg PO DAILY rituximab-pvvr IV HPI HPI N/P CTS EMG with RB: Details: 48-year-old right hand dominant male who presents to the office today for evaluation of bilateral hands. He states he has intermittent numbness in his bilateral hands for 3 years that is worse on his left hand. 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 He would like to discuss about surgery today. 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 Review of Systems Const All systems reviewed & are unremarkable except as noted in HPI and below Physical Exam Vital Signs: BMI result Body Mass Index 35.1 Const General: cooperative, healthy appearing, comfortable, no acute distress, well developed and alert Orientation/consciousness: patient oriented x3 HEENT Head: Yes normal to inspection, Yes normocephalic and Yes atraumatic Eyes General: appearance normal, both eyes and all related structures Resp Effort & Inspection: normal respiratory effort and able to speak in complete sentences Cardio Rate: regular rate Peripheral pulses: Peripheral pulses 2+ throughout GI Palpation (GI): Soft to palpation Skin Lesions: no lesions Rashes: no rashes Neuro General: patient oriented x3 Extrem Other: Bilateral wrist: Normal to inspection.? Tenderness over the carpal canal.? Numbness and tingling over the median nerve distribution of the right hand.? Able to make a full fist and fully extend all fingers.? Positive Tinel's. Bilateral elbow: Normal to inspection.? Mild Tenderness over the medial aspect of the elbow and Positive Tinel?s along the cubital tunnel.? He has good ROM of the elbow, no pain with supination or pronation. Numbness and tingling over the ulnar nerve distribution of the left hand.? Results Reviewed Results Reviewed: IMPRESSION: 1. This is an abnormal study. 2. There is electrodiagnostic evidence for bilateral moderate-severe median neuropathy at the wrist, consistent with Carpal Tunnel Syndrome. 3. There is electrodiagnostic evidence for bilateral ulnar neuropathy, most likely at the elbow. 4. There is no electrodiagnostic evidence for brachial plexopathy or cervical radiculopathy. Assessment & Plan Assessment & Plan (1) Bilateral carpal tunnel syndrome: Code(s): G56.03 - Carpal tunnel syndrome, bilateral upper limbs Category: Medical (2) Cubital tunnel syndrome, bilateral: Code(s): G56.23 - Lesion of ulnar nerve, bilateral upper limbs Category: Medical Plan We discussed surgical and nonsurgical intervention today. He states he is in a process of finding a new job and is not sure if he could commit fully to the surgery as he will need to take a time off if he takes a job. He will talk with his family and if he is interested, he will contact the office and we will proceed with a carpal tunnel and cubital tunnel release however he will specify which side he needs to proceed with first; left or right. Patient Instructions: Scribed for Kendell Pineda PA-C, by James Galan, durable medical equipment repairer, on 03/10/2024 at 3:00 PM EST.? I, Dima-Sravani Pineda PA-C, have personally reviewed and agree with the information entered by the scribe. Coding Level of Care Code New Pt Level 3 (64087) Diagnoses Bilateral carpal tunnel syndrome G56.03 Cubital tunnel syndrome, bilateral G56.23
== END 2024-03-10 16:09 | disposition home or self-care (01) ==
PROVIDERS: Visit Provider Physician Assistant
DX: G56.03 Carpal tunnel syndrome, bilateral upper limbs (principal); G56.23 Lesion of ulnar nerve, bilateral upper limbs
CPT/HCPCS: 99203

== ENCOUNTER → 2024-03-10 14:42 | Outpatient (BNVA) | payer OTHER, SELFPAY | PROVIDERS: Visit Provider Physician Assistant | DX: G56.03 Carpal tunnel syndrome, bilateral upper limbs (principal); G56.23 Lesion of ulnar nerve, bilateral upper limbs | CPT/HCPCS: 99202 ==

== ENCOUNTER 2024-05-17 15:43 | Outpatient (AMB) | payer OTHER, SELFPAY ==
--- NOTE | 2024-05-17 15:45 | MHC.OFFVIS ---
Vital Signs 05/17/24 15:48 Height 5 ft 8 in Weight 232 lb 9.403 oz BMI 35.4 BP 116/80 Blood Pressure Location Lt brachial Position Sitting Pulse 62 Pulse Source Pulse Oximeter Pulse Oximetry (%) 95 Oxygen Delivery Method Room Air Intake Visit Reasons: SLE Intake Note: Patient presents for SLE. Allergies propylene glycol Allergy (Verified 05/17/24 15:48) Rash Medication List - Last Reconciled 05/17/24 by Caleb Cavanaugh MD allopurinol 300 mg PO DAILY cetirizine 10 mg PO DAILY duloxetine 60 mg (2 x 30 mg) PO .each night hydrocortisone 5 mg PO QID hydroxychloroquine 200 mg PO BID levothyroxine 75 mcg PO DAILY lisinopril 20 mg PO DAILY rituximab-pvvr IV HPI Comments Details: 48-year-old male with mild SLE returns for follow-up. He is on hydroxychloroquine 200 mg Twice daily. About a month ago patient had bleeding in his gums, he was evaluated by energy crop farmer in his platelets were 14 k, at that time he was also starting to have some increased pain and stiffness of his joints. He received 3/4 weekly doses of rituximab. States that he feels better now. Initial history: 47-year-old male with a past medical history of ITP presents for evaluation of diffuse pain. Patient has had diffuse pain for years. Specially affecting his hands, wrists, ankles, feet. In 2020 he presented the hospital with petechial hemorrhages and severe thrombocytopenia. He was diagnosed with ITP. He was started on steroids and IVIG. He relapsed 2 weeks after IVIG and required rituximab. He got rituximab in the fall of 2020 and had another round of 4 weekly doses of rituximab completed 2 weeks ago. Over the last year patient has been having worsening fatigue and pain. His labs showed low free T4. He was eventually evaluated by Endocrinology in an MRI of the brain showed multiple pituitary micro adenomas. He was started on hydrocortisone and levothyroxine with some improvement of his symptoms. Patient states that he gets intermittent swelling of his wrists and knuckles. He states that overall he feels better. Feels that duloxetine might have helped with his anxiety and depression. He cannot really tell whether it helped his joints. He denies any skin rashes. Denies any blood or frothy urine. His grandmother had rheumatoid arthritis. Years history of submandibular gland stone, was evaluated by ENT and was advised against any intervention. States he was diagnosed with gout more than 20 years ago and has not had any gout flares in a long time except for 1 flare last fall. 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 Review of Systems Musc Reports arthralgias Neuro Reports paresthesias Physical Exam Vital Signs: Last Vital Signs Pulse 62 05/17/24 15:48 BP 116/80 05/17/24 15:48 Pulse Ox 95 05/17/24 15:48 Oxygen Delivery Method Room Air 05/17/24 15:48 BMI result Body Mass Index 35.4 Const General: cooperative, healthy appearing and comfortable Nutritional Appearance: obese Orientation/consciousness: patient oriented x3 Limitations: no limitations HEENT Head: Yes normocephalic and Yes atraumatic Resp Effort & Inspection: normal respiratory effort and able to speak in complete sentences Neuro General: patient oriented x3 Extrem Other: No active synovitis today Multiple Jac's and Heberden's nodes bilaterally 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 Mild bilateral tenosynovitis of the 4th extensor compartments, with increased vascularity.?? 2. Trace fluid in the right 4th metacarpophalangeal joint.?? 3. Fluid adjacent to the right flexor tendon of the 3rd MCP/PIP 4. No joint effusion, synovitis or tendinitis Assessment & Plan Assessment & Plan (1) SLE (systemic lupus erythematosus): Comment: ITP dx 05/2021 +KRISTAN + DsDNA, inflammatory arthritis treated with steroids & IVIG. lost response after 2 weeks. RTX (4 weekly doses given in 06/2021 & 11/28) HCQ 06/28 effective Code(s): M32.9 - Systemic lupus erythematosus, unspecified Category: Medical Qualifiers: Systemic lupus erythematosus type: unspecified Systemic lupus erythematosus organ involvement: other Qualified Code(s): M32.19 - Other organ or system involvement in systemic lupus erythematosus Plan: This is a 48-year-old male with mild SLE who presents for follow-up. On hydroxychloroquine 200 mg Twice daily. Of weeks ago patient had a flare-up and face ITP has received 3/4 scheduled doses of rituximab. On exam today there is no active synovitis. Continue hydroxychloroquine 20 mg Twice daily Labs before next visit in 4 months (2) Paresthesia of hand, bilateral: Code(s): R20.2 - Paresthesia of skin Category: Medical Plan: EMG/NCV showed bilateral carpal tunnel. I referred patient to hand surgeon who recommended surgery, patient would like another opinion. (3) Gout: Code(s): M10.9 - Gout, unspecified Category: Medical Qualifiers: Gout site: multiple sites Gout etiology: idiopathic Chronicity: chronic Presence of tophus: without tophus Qualified Code(s): M1A.09X0 - Idiopathic chronic gout, multiple sites, without tophus (tophi) Plan: Per patient was diagnosed more than 20 years ago. Has not had flares for years except for 1 flare in the fall of 2021. He has been on allopurinol for many years without flares. Continue allopurinol 300 mg daily. Prescribed by other providers. (4) Fibromyalgia, primary: Code(s): M79.7 - Fibromyalgia Category: Medical Plan: We had discussed fibromyalgia management before. I advised patient to keep doing light exercises. Duloxetine 60 mg nightly seems to be at least partially helpful. Continue duloxetine 60 mg nightly (5) Long-term use of hydroxychloroquine: Code(s): Z79.899 - Other keno terminal operator (current) drug therapy Category: Medical Plan: Follow-up regularly with Ophthalmology. Plan I spent 30 minutes reviewing patient's chart, evaluating patient, ordering diagnostic workup, counseling patient and documenting in the chart Orders: Orders Complement C4 4 Months M32.9 - Systemic lupus erythematosus, unspecified C Reactive Protein 4 Months M32.9 - Systemic lupus erythematosus, unspecified DNA Double Stranded-Crithidia 4 Months M32.9 - Systemic lupus erythematosus, unspecified Erythrocyte Sedimentation Rate 4 Months M32.9 - Systemic lupus erythematosus, unspecified Comprehensive Met. Panel 4 Months M32.9 - Systemic lupus erythematosus, unspecified Anti DNA DS Antibody 4 Months M32.9 - Systemic lupus erythematosus, unspecified Complement C3 4 Months M32.9 - Systemic lupus erythematosus, unspecified Protein Creatinine Ratio, Ur 4 Months M32.9 - Systemic lupus erythematosus, unspecified UA w Microscopic 4 Months M32.9 - Systemic lupus erythematosus, unspecified Complete Blood Count Auto Diff 4 Months M32.9 - Systemic lupus erythematosus, unspecified Coding Level of Care Code Est Pt Level 4 (19518) Diagnoses Systemic lupus erythematosus with other organ involvement, unspecified SLE type M32.19 Systemic lupus erythematosus type: unspecified Systemic lupus erythematosus organ involvement: other Paresthesia of hand, bilateral R20.2 Idiopathic chronic gout of multiple sites without tophus M1A.09X0 Gout site: multiple sites Gout etiology: idiopathic Chronicity: chronic Presence of tophus: without tophus Fibromyalgia, primary M79.7 Long-term use of hydroxychloroquine Z79.899
[2024-05-17 15:48] VITALS: BP 116/80; PULSE 62; O2SAT 95; BMI 35.4
== END 2024-05-17 16:17 | disposition home or self-care (01) ==
PROVIDERS: Visit Provider Student in an Organized Health Care Education/Training Program
DX: M32.19 Other organ or system involvement in systemic lupus erythematosus (principal); R20.2 Paresthesia of skin; M1A.09X0 Idiopathic chronic gout, multiple sites, without tophus (tophi); M79.7 Fibromyalgia; Z79.899 Other long term (current) drug therapy
CPT/HCPCS: 99214

== ENCOUNTER → 2024-05-17 15:43 | Outpatient (BNVA) | payer OTHER, SELFPAY | PROVIDERS: Visit Provider Student in an Organized Health Care Education/Training Program | DX: M32.19 Other organ or system involvement in systemic lupus erythematosus (principal); M1A.09X0 Idiopathic chronic gout, multiple sites, without tophus (tophi); M79.7 Fibromyalgia; R20.2 Paresthesia of skin; Z79.899 Other long term (current) drug therapy | CPT/HCPCS: 99212 ==

== ENCOUNTER 2024-09-15 16:48 | Outpatient (REF) | payer BC, SELFPAY ==
[2024-09-15 17:10] LABS: MANUAL DIFF FLAG NO
[2024-09-15 17:28] LABS: Basophils Absolute Auto 0.1 X10*3/uL (0.0-0.2); Basophils Percent Auto 0.7 % (0-2); Eosinophils Absolute Auto 0.5 X10*3/uL (0.0-0.4); Hematocrit 38.1 % (42.0-52.0); Hemoglobin 13.3 g/dl (14.0-18.0); Imm Gran Abs Auto 0.03 X10*3/uL (0.00-0.03); Imm Gran Pct Auto 0.4 % (0.0-0.4); Lymphocytes Absolute Auto 1.6 X10*3/uL (1.2-4.9); Lymphocytes Percent Auto 23.2 % (20-40); Mean Corpuscular HGB Conc 34.9 g/dl (31.0-36.0); Mean Corpuscular Hemoglobin 28.6 pg (27.0-33.0); Mean Corpuscular Volume 81.9 fL (80.0-98.0); Mean Platelet Volume 10.2 fL (9.4-12.4); Monocytes Absolute Auto 0.6 X10*3/uL (0.1-1.2); Monocytes Percent Auto 8.8 % (2-11); Neutrophils Percent Auto 58.9 % (45-73); Platelet Count 252 X10*3/uL (160-400); Red Blood Count 4.65 X10*6/uL (4.60-5.80); Red Cell Distribution Width 13.4 % (11.0-16.0); White Blood Count 6.7 X10*3/uL (4.8-10.8)
[2024-09-15 17:31] LABS: Appearance Urine Clear; Color Urine Yellow; Glucose Urine UA Negative (Negative); Leukocyte Esterase Urine Negative (Negative); Nitrite Urine Negative (Negative); PH 5.5 (5.0-9.0); Specific Gravity - Urine 1.015 (1.005-1.025); Urine Blood Negative (Negative); Urine Ketones Negative (Negative); Urine Protein Negative (Neg-Trace)
[2024-09-15 17:33] LABS: Creatinine Urine 112.67 mg/dL; Total Protein Urine Random < 7 mg/dL (<12)
[2024-09-15 17:36] LABS: Bacteria Urine None Seen (None Seen); Hyaline Casts Urine 0-2 /LPF (0-2); RBC Urine 0-2 /HPF (0-2); Squamous Epithelial Cell Urine 0-2 /HPF (0-2); WBC Urine 0-5 /HPF (0-5)
[2024-09-15 17:52] LABS: Albumin Level 4.3 g/dL (3.5-5.0); Anion Gap 13 (12-20); Aspartate Amino Transferase 38 U/L (5-37); Bilirubin Total 0.7 mg/dL (0.0-1.0); Blood Urea Nitrogen 14 mg/dL (9-16); C Reactive Protein 0.43 mg/dL (< or = 0.50); Calcium 9.5 mg/dL (8.4-10.2); Carbon Dioxide 26 mmol/L (22-29); Chloride 106 mmol/L (96-108); Estimated Glomerular Filt Rate > 60; Glucose Random 93 mg/dL (60-115); Potassium 3.8 mmol/L (3.3-5.1); Sodium 141 mmol/L (135-145); Total Protein 7.2 g/dL (6.5-8.0); Uric Acid 6.6 mg/dL (3.4-7.0)
[2024-09-15 18:07] LABS: Erythrocyte Sedimentation Rate 6 MM/HR (0-15)
[2024-09-15 18:08] LABS: Alanine Aminotransferase 48 U/L (0-40); Alkaline Phosphatase 75 U/L (39-117)
[2024-09-16 15:49] LABS: Anti DNA DS Antibody 6 IU/mL
[2024-09-20 11:09] LABS: Complement C3 143 mg/dL (82-185)
[2024-09-20 15:23] LABS: DNAds, Crithidia Antibody Negative (Negative)
== END 2024-09-15 16:49 | disposition home or self-care (01) ==
LOC: HO.LAB 16:48
PROVIDERS: PCP Student in an Organized Health Care Education/Training Program; Visit Provider Student in an Organized Health Care Education/Training Program
DX: M32.9 Systemic lupus erythematosus, unspecified (principal); M1A.09X0 Idiopathic chronic gout, multiple sites, without tophus (tophi)
CPT/HCPCS: 36415; 80053; 81001; 82570; 84156; 84550; 85025; 85652; 86140; 86160; 86225; 86255

== ENCOUNTER 2024-09-16 09:26 | Outpatient (AMB) | payer OTHER, SELFPAY ==
--- NOTE | 2024-09-16 09:31 | A.OFFVIS_ITS ---
Vital Signs 09/16/24 09:35 Height 5 ft 8 in Weight 235 lb 7.259 oz BMI 35.8 BP 122/80 Blood Pressure Location Lt brachial Position Sitting Respiration 18 Pulse 71 Pulse Source Pulse Oximeter Pulse Oximetry (%) 97 Oxygen Delivery Method Room Air Intake Visit Reasons: Lupus Intake Note: Patient presents for Lupus. 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 He is on hydroxychloroquine 200 mg Twice daily. He found a new job. 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 States that generally his job is not very physical. He likes it. But he gets achy at times. He was evaluated by a couple of hand surgeons who recommended surgery for carpal tunnel syndrome and patient did not want want to proceed as he does not want to be out of work. Initial history: 47-year-old male with a past medical history of ITP presents for evaluation of diffuse pain. Patient has had diffuse pain for years. Specially affecting his hands, wrists, ankles, feet. In 2020 he presented the hospital with petechial hemorrhages and severe thrombocytopenia. He was diagnosed with ITP. He was started on steroids and IVIG. He relapsed 2 weeks after IVIG and required rituximab. He got rituximab in the fall of 2020 and had another round of 4 weekly doses of rituximab completed 2 weeks ago. Over the last year patient has been having worsening fatigue and pain. His labs showed low free T4. He was eventually evaluated by Endocrinology in an MRI of the brain showed multiple pituitary micro adenomas. He was started on hydrocortisone and levothyroxine with some improvement of his symptoms. Patient states that he gets intermittent swelling of his wrists and knuckles. He states that overall he feels better. Feels that duloxetine might have helped with his anxiety and depression. He cannot really tell whether it helped his joints. He denies any skin rashes. Denies any blood or frothy urine. His grandmother had rheumatoid arthritis. Years history of submandibular gland stone, was evaluated by ENT and was advised against any intervention. States he was diagnosed with gout more than 20 years ago and has not had any gout flares in a long time except for 1 flare last fall. 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 Review of Systems Musc Reports arthralgias Neuro Reports paresthesias Physical Exam Vital Signs: Last Vital Signs Pulse 71 09/16/24 09:35 Resp 18 09/16/24 09:35 BP 122/80 09/16/24 09:35 Pulse Ox 97 09/16/24 09:35 Oxygen Delivery Method Room Air 09/16/24 09:35 BMI result Body Mass Index 35.8 Const General: cooperative, healthy appearing and comfortable Nutritional Appearance: obese Orientation/consciousness: patient oriented x3 Limitations: no limitations HEENT Head: Yes normocephalic and Yes atraumatic Resp Effort & Inspection: normal respiratory effort and able to speak in complete sentences Neuro General: patient oriented x3 Extrem Other: No active synovitis today Multiple Jac's and Heberden's nodes bilaterally Normal bilateral hand junior automation engineer strength Assessment & Plan Assessment & Plan (1) SLE (systemic lupus erythematosus): Comment: ITP dx 05/2021 +KRISTAN + DsDNA, inflammatory arthritis treated with steroids & IVIG. lost response after 2 weeks. RTX (4 weekly doses given in 06/2021 & 11/2022, another flare received RTX 04/2024) HCQ 06/2023 effective Code(s): M32.9 - Systemic lupus erythematosus, unspecified Category: Medical Qualifiers: Systemic lupus erythematosus type: unspecified Systemic lupus erythematosus organ involvement: other Qualified Code(s): M32.19 - Other organ or system involvement in systemic lupus erythematosus Plan: This is a 48-year-old male with mild SLE who presents for follow-up. On hydroxychloroquine 200 mg Twice daily. Doing well overall with no active synovitis. Symptoms are due to degenerative arthritis and fibromyalgia. Continue with hydroxychloroquine 200 mg Twice daily Labs before next visit in 6 months (2) Paresthesia of hand, bilateral: Code(s): R20.2 - Paresthesia of skin Category: Medical Plan: EMG/NCV showed bilateral carpal tunnel syndrome. He was evaluated by a couple of hand surgeon who both recommended surgery patient did not want to proceed as he does not want to be out of work (3) Gout: Code(s): M10.9 - Gout, unspecified Category: Medical Qualifiers: Gout site: multiple sites Gout etiology: idiopathic Chronicity: chronic Presence of tophus: without tophus Qualified Code(s): M1A.09X0 - Idiopathic chronic gout, multiple sites, without tophus (tophi) Plan: Per patient was diagnosed more than 20 years ago. Has not had flares for years except for 1 flare in the fall of 2021. He has been on allopurinol for many years without flares. Continue allopurinol 300 mg daily. Prescribed by other providers. (4) Fibromyalgia, primary: Code(s): M79.7 - Fibromyalgia Category: Medical Plan: We had discussed fibromyalgia management before. I advised patient to keep doing light exercises. Duloxetine 60 mg nightly seems to be at least partially helpful. Continue duloxetine 60 mg nightly (5) Long-term use of hydroxychloroquine: Code(s): Z79.899 - Other firer locomotive (current) drug therapy Category: Medical Plan: Per patient was evaluated by eye doctor a couple of weeks ago. Follow-up regularly with Ophthalmology. Plan I spent 30 minutes reviewing patient's chart, evaluating patient, ordering diagnostic workup, counseling patient and documenting in the chart Orders: Orders Anti DNA DS Antibody 6 Months M32.19 - Other organ or system involvement in systemic lupus erythematosus Complement C3 6 Months M32.19 - Other organ or system involvement in systemic lupus erythematosus Erythrocyte Sedimentation Rate 6 Months M3. - Other organ or system involvement in systemic lupus erythematosus Protein Creatinine Ratio, Ur 6 Months . - Other organ or system involvement in systemic lupus erythematosus Complete Blood Count Auto Diff 6 Months M3. - Other organ or system involvement in systemic lupus erythematosus Comprehensive Met. Panel 6 Months . - Other organ or system involvement in systemic lupus erythematosus Complement C4 6 Months . - Other organ or system involvement in systemic lupus erythematosus C Reactive Protein 6 Months . - Other organ or system involvement in systemic lupus erythematosus UA w Microscopic 6 Months . - Other organ or system involvement in systemic lupus erythematosus Coding Level of Care Code Est Pt Level 4 (07357) Complex EM visit Add On G2211 Diagnoses Systemic lupus erythematosus with other organ involvement, unspecified SLE type . Systemic lupus erythematosus type: unspecified Systemic lupus erythematosus organ involvement: other Paresthesia of hand, bilateral R20.2 Idiopathic chronic gout of multiple sites without tophus M1A.09X0 Gout site: multiple sites Gout etiology: idiopathic Chronicity: chronic Presence of tophus: without tophus Fibromyalgia, primary M79.7 Long-term use of hydroxychloroquine Z79.899
[2024-09-16 09:35] VITALS: BP 122/80; PULSE 71; RESP 18; O2SAT 97; BMI 35.8
== END 2024-09-16 10:08 | disposition home or self-care (01) ==
PROVIDERS: Visit Provider Student in an Organized Health Care Education/Training Program
DX: M32.19 Other organ or system involvement in systemic lupus erythematosus (principal); R20.2 Paresthesia of skin; M1A.09X0 Idiopathic chronic gout, multiple sites, without tophus (tophi); M79.7 Fibromyalgia; Z79.899 Other long term (current) drug therapy
CPT/HCPCS: 99214; G2211

== ENCOUNTER → 2024-09-16 09:26 | Outpatient (BNVA) | payer OTHER, SELFPAY | PROVIDERS: Visit Provider Student in an Organized Health Care Education/Training Program | DX: M32.19 Other organ or system involvement in systemic lupus erythematosus (principal); M79.7 Fibromyalgia; M1A.09X0 Idiopathic chronic gout, multiple sites, without tophus (tophi); R20.2 Paresthesia of skin; Z79.899 Other long term (current) drug therapy | CPT/HCPCS: 99212 ==

== ENCOUNTER 2025-05-12 08:42 | Outpatient (REF) | payer BC, SELFPAY ==
--- OUTSIDE RECORDS SUMMARY | 2025-05-06 23:59 | XMS_ITS | Continuity of Care Document ---
Author Organization [facility] ter Address [address] [place] [id number]- Care Team Providers Care Escrow Clerk Name Role Phone Samir PENALOZA, [facility] Primary Care Physician Encounter [facility] [id number] Date(s): 03/28/25 - 05/06/[address] [address]- Attending Physician: Nora Marley MD Admitting Physician: Nora Marley MD Referring Physician: Nora Marley MD Encounter Type: Pre-Outpt Allergies, Adverse Reactions, Alerts Substance Criticality Severity Reaction Reaction Severity Status polyethylene glycol 3350 hives Active Immunizations Given and Recorded Vaccine Date Status Refusal Reason influenza virus vaccine, inactivated 1 09/22/14 Gi eli influenza virus vaccine, inactivated 2 06/18/13 Gi eli influenza virus vaccine, inactivated 3 09/02/11 Gi eli influenza virus vaccine, inactivated 4 01/01/11 Gi eli tetanus/diphtheria/pertussis, acel(Tdap) 5 01/01/11 Given 1Result Comment: [09/22/2014] Fluarix trivalent [id number] 2Admin Note: vis given 04/30/2013 3Admin Note: VIS given 04/30/11, bengali form 4Admin Note: VIS GIVEN 05/2010 5Admin Note: VIS GIVEN Medications Allergy Relief (Fexofenadine HCl) 180 mg oral tablet 1 tablet = 180 mg, By Mouth, Daily, 0 Refills, Maintenance, 03/20/25 3:05:00 PM EDT, Tablet, Partialfill upon patient request if the prescription is for a schedule II opioid drug. Start Date: 03/20/25 Status: Ordered Repeat number: 1 allopurinol 300 mg oral tablet 300 mg, 1, tablet, By Mouth, Daily, Refills 0, Maintenance, 03/20/25 3:02:00 PM EDT, Partial fill upon patient request if the prescription is for a schedule II opioid drug. Start Date: 03/20/25 Status: Ordered Repeat number: 1 aspirin 81 mg oral delayed release tablet 81 mg, By Mouth, Daily, # 90 tablet, Refills 0, Tot. Refills 0, Maintenance, 03/22/25 12:25:00 PM EDT, Route to Pharmacy Electronically, [facility] 3, Partial fill upon patient request if the prescription is for a schedule II opioid drug., 170.18, cm, 03/22/25 8:29:00 EDT, Height, 103, kg, 03/20/25 14:34:00 EDT, Dry Weight Start Date: 03/22/25 Stop Date: 06/20/25 Status: Ordered Quantity: 90.0 Unit: tablet Repeat number: 1 atorvastatin 40 mg oral tablet = 40 mg, By Mouth, Daily at bedtime, # 90 tablet, 1 Refills, Maintenance, 03/22/25 12:25:00 PM EDT, Tablet, [facility] 3, Partial fill upon patient request if the prescription is for a schedule II opioid drug., 170.18, cm, 03/22/25 8:29:00 EDT, Height, 103, kg, 03/20/25 14:34:00 EDT, DryWeight Start Date: 03/22/25 Stop Date: 09/18/25 Status: Ordered Quantity: 90.0 Unit: tablet Repeat number: 2 HydroCORTisone 5 mg oral tablet 1 tablet = 5 mg, By Mouth, Daily, at 2pm Start Date: 03/22/25 Status: Ordered Repeat number: 1 HydroCORTisone 5 mg oral tablet 3 tablet = 15 mg, By Mouth, Daily in AM Start Date: 03/22/25 Status: Ordered Repeat number: 1 hydroxychloroquine 200 mg oral tablet 200 mg, 1, tablet, By Mouth, 2 times a day, # 180 tablet, Refills 0, Maintenance, 03/20/25 3:06:00 PM EDT, Partial fill upon patient request if the prescription is for a schedule II opioid drug. Start Date: 03/20/25 Status: Ordered Quantity: 180.0 Unit: tablet Repeat number: 1 levothyroxine 88 mcg (0.088 mg) oral capsule 1 capsule = 88 mcg, By Mouth, Daily, # 30 capsule, 0 Refills, Maintenance, 03/20/25 3:04:00 PM EDT, Capsule, Partial fill upon patient request if the prescription is for a schedule II opioid drug. Start Date: 03/20/25 Status: Ordered Quantity: 30.0 Unit: capsule Repeat number: 1 lisinopril 20 mg oral tablet 20 mg, 1, tablet, By Mouth, Daily, # 30 tablet, Refills 0, Maintenance, 03/20/25 2:58:00 PM EDT, Partial fill upon patient request if the prescription is for a schedule II opioid drug. Start Date: 03/20/25 Status: Ordered Quantity: 30.0 Unit: tablet Repeat number: 1 omeprazole 20 mg oral enteric coated capsule 1 capsule = 20 mg, By Mouth, Daily, # 90 capsule, 0 Refills, Maintenance, 03/20/25 3:01:00 PM EDT, EC Capsule, Partial fill upon patient request if the prescription is for a schedule II opioid drug. Start Date: 03/20/25 Status: Ordered Quantity: 90.0 Unit: capsule Repeat number: 1 ticagrelor 90 mg oral tablet 1 tablet = 90 mg, By Mouth, 2 times a day, # 180 tablet, 0 Refills, Maintenance, 03/22/25 12:25:00 PM EDT, Tablet, [facility] 3, Partial fill upon patient request if the prescription is for a schedule II opioid drug., 170.18, cm, 03/22/25 8:29:00 EDT, Height, 103, kg, 03/20/25 14:34:00 EDT, Dry Weight Start Date: 03/22/25 Stop Date: 06/20/25 Status: Ordered Quantity: 180.0 Unit: tablet Repeat number: 1 Vitamin D3 50 mcg (2000 intl units) oral tablet, chewable 1 tablet = 50 mcg, By Mouth, Daily, 0 Refills, Maintenance, 03/20/25 3:11:00 PM EDT, Partial fill upon patient request if the prescription is for a schedule II opioid drug. Start Date: 03/20/25 Status: Ordered Repeat number: 1 Problem List Condition Confirmation Course Effective Dates Status Health St atus Informant Benign Essential Hypertension Confirmed 11/14/11 Active Esophageal reflux (GERD) Confirmed 11/14/11 Active Gout Confirmed 2/9/12 Active Irritable Bowel Syndrome Confirmed 11/14/11 Active Obese class I Confirmed Active Thyroid disease Confirmed Active Social History Social History Type Response Smoking Status Never (less than 100 in lifetime) entered on: 03/20/25 Sex Sex Representation Male (finding) Note * Ольга Sancehz: PERFORM, SIGN, VERIFY Event Display: Cardiac Rehab Note Authored Date: [id number] Patient: ILAN FULTON Age: 49 years Sex: Male : 1975 Associated Diagnoses: None Author: Ольга Sanchez Ilan was scheduled for Ph 2 Cardiac Rehab Orientation, he did not show for this appointment. The phone number in CIS is not correct, I was uable to reach the patient in regards to this appointment. Patient Care team information Care Team Personnel Name: Barby COURTNEY, Araceli Position: S ED RN W/OE and Tasks Member Role: Primary Care Nurse Name: Mona Dawson MD Position: Reference Physician Member Role: PCP Address: [address] [place] [address] Telecom: Care Team Related Persons Name: PROSPER [employer] Insurance Providers Guarantor name: BRINDA Health Plan Information #: 1 Payer: [facility] Payer Identifier: BRINDA Member Number: [id number] Group Number: [id number] Subscriber Identifier: [id number] Relationship to Subscriber: self Coverage Type: NA Coverage Verification Date: Telecom: Address:
--- OUTSIDE RECORDS SUMMARY | 2025-05-12 09:01 | XMS_ITS ---
Author Name [facility] Organization Unknown Care Team Organization Name Specialty Phone Email Start Date End [facility] Mona Dawson Primary Care 08/05/2023 024
--- OUTSIDE RECORDS SUMMARY | 2025-05-12 09:01 | XMS_ITS | Clinical Summary ---
Author Organization [facility] Address [address] [place] [id number] Care Team Providers Care Pipe Fitter [employer] Name Role Phone Luz Morales MD Primary Care Prov ider Allergies Active Allergy Reactions Criticality Noted Date Comments Propylene Glycol 05/21/2021 Medications Medication Sig Dispensed Refills Start Date End Date Status lisinopril (PRINIVIL,ZESTRIL) tablet 20 mg Take 1 tablet (20 mg total) by mouth daily. 0 Active cetirizine (ZyrTEC) 10 MG tablet Take 1 tablet (10 mg total) by mouth daily. 0 Active allopurinol (ZYLOPRIM) 300 MG tablet Take 1 tablet (300 mg total) by mouth daily. 0 Active hydrocortisone (CORTEF) tablet 5 mg Take 1 tablet (5 mg total) by mouth daily. 0 Active levothyroxine (SYNTHROID) tablet 75 mcg Take 1 tablet (75 mcg total) by mouth every morning on an empty stomach. 0 Active DULoxetine (CYMBALTA) DR capsule 20 mg Take 1 capsule (20 mg total) by mouth daily. 0 Active hydroxychloroquine (PLAQUENIL) 200 MG tablet Take by mouth daily. 0 Active Active Problems Problem Noted Date Diagnosed Date Transaminitis 11/18/2022 Low serum cortisol level 11/11/2022 Weight loss 12/04/2021 Thrombocytopenia 05/20/2021 History of COVID-19 12/06/2020 Overview: Oct 2020 Elevated liver enzymes 10/10/2016 Obstructive sleep apnea 05/14/2016 Overview: Cx Pulmo 08/19/2016 ResScan 06/25/2016 to 08/13/2016. CPAP@ 6-16/Average 15/Max 15.7. 96% compliant with using the machine for >4 hours/day. Average use is 6.75 hours a night with AHI 0.9. Depression with anxiety 04/26/2015 HTN (hypertension), benign 04/26/2015 Panic attacks 04/26/2015 Family History Relation Name Status Comments Father Alive Mother Alive Social History Tobacco Use Types Packs/Day Years Used Date Smoking Tobacco: Never Smokeless Tobacco: Never Alcohol Use Standard Drinks/Week Comments Not Currently 0 (1 standard drink = 0.6 oz pur e alcohol) Sex and Gender Information Value Date Recorded Sex Assigned at Male 11/01/2022 2:56 PM EST Gender Identity Not on file Sexual Orientation Not on file Job Start Date Occupation Industry Not on file Not on file Not on file Last Filed Vital Signs Vital Sign Reading Time Taken Comments Blood Pressure 121/73 05/28/2024 9:35 AM EDT Pulse 66 05/28/2024 9:35 AM EDT Temperature 36.4 C (97.5 F) 05/28/2024 9:35 AM EDT Respiratory Rate 18 05/07/2024 11:0 8 AM EDT Oxygen Saturation 100% 05/28/2024 9:35 AM EDT Inhaled Oxygen Concentration - - Weight 106.8 kg (235 lb 6.4 oz) 05/28/2024 9:35 AM EDT Height 165.1 cm (5' 5 ) 05/28/2024 9:35 AM EDT Body Mass Index 39.17 05/28/2024 9:35 AM EDT Plan of Treatment Health Maintenance Due Date Last Done Comments Hepatitis B Vaccines (1 of 3 - 3-dose series) 1975 Hepatitis C Screening 1975 Depression Screening 1987 BMI Counseling 1993 Preventative Health Evaluation 1993 Colon Cancer Screening (Colonoscopy) 2020 COVID-19 Vaccine ( season) 2024 04/12/2022, 02/27/2022 Influenza Vaccine (#1) 2025 , 06/28/2015, 09/22/2014, Additional history exists DTap / Tdap / Td (2 - Td or Tdap) 05/18/2030 05/18/2020 Pneumococcal Vaccine Aged Out No long er eligible based on patient's age to complete this topic RSV Ped < 20 months Aged Out No longe r eligible based on patient's age to complete this topic Care Teams Pipe Fitter [employer] Relationship Specialty Start Date End Date Luz Morales MD [address] [place] [address] PCP - General Internal Medicine 11/18/22
[2025-05-12 09:03] LABS: MANUAL DIFF FLAG NO
[2025-05-12 09:53] LABS: Hematocrit 38.0 % (42.0-52.0); Hemoglobin 13.1 g/dl (14.0-18.0); Imm Gran Abs Auto 0.01 X10*3/uL (0.00-0.03); Imm Gran Pct Auto 0.2 % (0.0-0.4); Lymphocytes Absolute Auto 0.9 X10*3/uL (1.2-4.9); Mean Corpuscular HGB Conc 34.5 g/dl (31.0-36.0); Mean Corpuscular Hemoglobin 29.4 pg (27.0-33.0); Mean Corpuscular Volume 85.2 fL (80.0-98.0); NRBC Abs Auto 0.000 X10*3/uL (0.0-0.012); NRBC Pct Auto 0.0 /100WBC (0.0-0.2); Platelet Count 191 X10*3/uL (160-400); Red Blood Count 4.46 X10*6/uL (4.60-5.80); White Blood Count 5.5 X10*3/uL (4.8-10.8)
[2025-05-12 09:58] LABS: Appearance Urine Clear; Glucose Urine UA Negative (Negative); PH 5.5 (5.0-9.0); Specific Gravity - Urine 1.015 (1.005-1.025)
[2025-05-12 10:30] LABS: Alanine Aminotransferase 39 U/L (0-40); Albumin Level 4.6 g/dL (3.5-5.0); Alkaline Phosphatase 68 U/L (39-117); Anion Gap 13 (12-20); Aspartate Amino Transferase 30 U/L (5-37); Blood Urea Nitrogen 17 mg/dL (9-16); Calcium 9.1 mg/dL (8.4-10.2); Carbon Dioxide 25 mmol/L (22-29); Chloride 106 mmol/L (96-108); Estimated Glomerular Filt Rate > 60; Potassium 3.9 mmol/L (3.3-5.1); Sodium 140 mmol/L (135-145); Total Protein 7.2 g/dL (6.5-8.0)
[2025-05-12 11:08] LABS: Total Protein Urine Random < 7 mg/dL (<12)
== END 2025-05-12 08:43 | disposition home or self-care (01) ==
LOC: HO.LAB 08:42
PROVIDERS: PCP Internal Medicine; Visit Provider Student in an Organized Health Care Education/Training Program
DX: M32.19 Other organ or system involvement in systemic lupus erythematosus (principal); M79.7 Fibromyalgia; M19.041 Primary osteoarthritis, right hand; M19.042 Primary osteoarthritis, left hand; Z79.899 Other long term (current) drug therapy; Z01.84 Encounter for antibody response examination
CPT/HCPCS: 36415; 80053; 81001; 82570; 84156; 85025; 85652; 86140; 86160; 86225

== ENCOUNTER 2025-05-12 10:20 | Outpatient (AMB) | payer BC, SELFPAY ==
--- NOTE | 2025-05-12 10:26 | MHC.OFFVIS ---
Vital Signs 05/12/25 10:28 Height 5 ft 8 in Weight 211 lb 3.245 oz BMI 32.1 BP 100/70 Blood Pressure Location Rt brachial Position Sitting Pulse 59 Pulse Source Pulse Oximeter Pulse Oximetry (%) 97 Oxygen Delivery Method Room Air Intake Visit Reasons: SLE Intake Note: Patient presents for Lupus. [employer]inter [employer] Name: reginald Accompanied by: Allergies propylene glycol Allergy (Verified 09/16/24 09:34) Rash HPI HPI SLE: Details: Patient is accompanied with his . He had cardiac and reports that heart vessel is 90% blocked. He is on new medications with antiplatelet agent, aspirin and atorvastatin. He has developed nodule on DIP. Feels cold internally when he walks outside. Has chest pain with lifting. He feels pain everywhere sometimes. Denies fevers, dyspnea, pleurisy, oral ulcers, hair loss, urinary symptoms, Raynaud's phenomenon, rash. He stopped duloxetine a few months ago due to symptom of dysuria, which has subsided. [facility] Medical History (Updated 05/12/25 @ 12:33 by Sammy Moon MD) Catheterization of bronchus performed Gout Pituitary microadenoma Idiopathic thrombocytopenic purpura (ITP) Normal endoscopic ultrasound of upper GI tract Panic attacks Depression with anxiety Hypertension Obstructive sleep apnea Elevated liver enzymes Severe obesity Surgical History H/O colonoscopy Family History Mother Gout Arthritis Father CAD (coronary artery disease) Diabetes Hypertension Brother Diabetes Lung cancer Social History Household Members: Spouse and Children Alcohol intake: never Patient Tobacco Use Status: Never used Tobacco 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 Good respiratory effort Skin: No lesions seen MSK: Heberden nodes present. No tender joints. No synovitis. He is able to nurse infection control his hands. Normal range of motion of upper extremities and lower extremities. No tender points on exam. Assessment & Plan Assessment & Plan (1) SLE (systemic lupus erythematosus): Comment: ITP is controlled on HCQ. He reports that he has polyarthralgias. He has clinical osteoarthritis affecting his hands confirmed on x-ray 2022. He does not have synovitis to suggest active inflammatory arthritis. He agreed to OT. 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 Rheumatology history: Presenting with ITP and diffuse pain dx 05/2021 +KRISTAN 1:320 07/2022, + DsDNA. Treated with steroids & IVIG. lost response after 2 weeks. RTX (4 weekly doses given in 06/2021 & 11/2022, another flare received RTX 04/2024). HCQ 06/2023 effective. Code(s): M32.9 - Systemic lupus erythematosus, unspecified Category: Medical Qualifiers: Systemic lupus erythematosus organ involvement: other Systemic lupus erythematosus type: unspecified Qualified Code(s): M32.19 - Other organ or system involvement in systemic lupus erythematosus Plan: Continue hydroxychloroquine 400 mg daily. Requesting last eye exam for hydroxychloroquine surveillance, which he has every 6 months Labs for drug monitoring on high-risk medication were drawn today. Some labs are pending -I will follow up OT ordered to improve hand strength T spot ordered Return to clinic in 3 months (2) Fibromyalgia, primary: Code(s): M79.7 - Fibromyalgia Category: Medical Plan: Defer management to PCP (3) Long-term use of hydroxychloroquine: Code(s): Z79.899 - Other [facility] (current[facility] drug therapy Category: Medical Plan: See above (4) Osteoarthritis of hands, bilateral: Code(s): M19.041 - Primary osteoarthritis, right hand; M19.042 - Primary osteoarthritis, left hand Category: Medical Plan: OT ordered Orders: Orders T Spot TB Today M32.19 - Other organ or system involvement in systemic lupus erythematosus OT Evaluation and Treatment Today M19.041 - Primary osteoarthritis, right hand, M19.042 - Primary osteoarthritis, left hand Medications: New arm brace (Wrist Brace) Use at night Bilateral cockup wrist brace Dx: carpal tunnel syndrome 2 ea 0RF Coding Level of Care Code Est Pt Level 5 (41512) Complex EM visit Add On G2211 Diagnoses Systemic lupus erythematosus with other organ involvement, unspecified SLE type M32.19 Systemic lupus erythematosus organ involvement: other Systemic lupus erythematosus type: unspecified Fibromyalgia, primary M79.7 Long-term use of hydroxychloroquine Z79.899 Osteoarthritis of hands, bilateral M19.041; M19.042 Time Spent (min) 40
[2025-05-12 10:28] VITALS: BP 100/70; PULSE 59; O2SAT 97; BMI 32.1
== END 2025-05-12 11:07 | disposition home or self-care (01) ==
PROVIDERS: PCP Student in an Organized Health Care Education/Training Program; Visit Provider Internal Medicine Rheumatology
DX: M32.19 Other organ or system involvement in systemic lupus erythematosus (principal); M79.7 Fibromyalgia; Z79.899 Other long term (current) drug therapy; M19.041 Primary osteoarthritis, right hand; M19.042 Primary osteoarthritis, left hand
CPT/HCPCS: 99215

== ENCOUNTER 2025-05-12 11:09 | Outpatient (REF) | payer BC, SELFPAY ==
[2025-05-15 20:19] LABS: TS Negative Control Passed; TS Panel A 1; TS Panel B 0; TS Positive Control Passed; TSpotTB Negative (Negative)
== END 2025-05-12 11:10 | disposition home or self-care (01) ==
LOC: HO.HKASLDS 11:09
PROVIDERS: Visit Provider Internal Medicine Rheumatology
DX: Z11.1 Encounter for screening for respiratory tuberculosis (principal); M32.19 Other organ or system involvement in systemic lupus erythematosus
CPT/HCPCS: 36415; 86481

== ENCOUNTER 2025-08-16 09:48 | Outpatient (AMB) | payer BC, SELFPAY ==
--- NOTE | 2025-08-16 09:56 | MHC.OFFVIS ---
Vital Signs 08/16/25 10:00 Height 5 ft 8 in Weight 208 lb 15.971 oz BMI 31.8 BP 122/80 Blood Pressure Location Rt brachial Position Sitting Pulse 57 Pulse Source Pulse Oximeter Pulse Oximetry (%) 98 Oxygen Delivery Method Room Air Intake Visit Reasons: 3 months Intake Note: Patient presents for Lupus follow up. Technical Marketing Engineer Required: Yes Technical Marketing Engineer Language: [employer]: Technical Marketing Engineer Offered & Declined Information Interpreted: non-clinical & clinical Allergies propylene glycol Allergy (Verified 08/16/25 09:59) Rash HPI HPI 3 months: Details: Intermittent joint pains in hands and when he comes home from work is generalized. Tolerable. Last week he had lower back pain. It resolved. When he stands up for prolonged periods of time he feels that his upper back neck is fatigued. He slouches when he walks. No fevers, dyspnea, pleurisy, urinary symptoms, oral ulcers, rash, Raynaud's phenomenon, joint swelling. He did not receive a phone call to schedule occupational therapy. He is noticing that his nodule on his right 2nd fingers growing. [facility], [facility] Medical History (Updated 08/16/25 @ 10:32 by Sammy Moon MD) Catheterization of bronchus performed Gout Pituitary microadenoma Idiopathic thrombocytopenic purpura (ITP) Normal endoscopic ultrasound of upper GI tract Panic attacks Depression with anxiety Hypertension Obstructive sleep apnea Elevated liver enzymes Severe obesity Surgical History H/O colonoscopy Family History Mother Gout Arthritis Father CAD (coronary artery disease) Diabetes Hypertension Brother Diabetes Lung cancer Social History Household Members: Spouse and Children Alcohol intake: never Patient Tobacco Use Status: Never used Tobacco 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 Good respiratory effort Skin: No lesions seen MSK: Heberden nodes present. Tender right 2nd and 3rd PIP. No synovitis. 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 Normal range of motion of upper extremities and lower extremities. Assessment & Plan Assessment & Plan (1) SLE (systemic lupus erythematosus): Comment: ITP is controlled on HCQ. Labs reviewed with patient, which reveal persistent indeterminate double-stranded DNA. He has generalized joint pain but it is tolerable. Rheumatology history: Presenting with ITP and diffuse pain dx 05/2021 +KRISTAN 1:320 07/2022, + DsDNA. Treated with steroids & IVIG. lost response after 2 weeks. RTX (4 weekly doses given in 06/2021 & 11/2022, another flare received RTX 04/2024). HCQ 06/2023 effective. Code(s): M32.9 - Systemic lupus erythematosus, unspecified Category: Medical Qualifiers: Systemic lupus erythematosus type: unspecified Systemic lupus erythematosus organ involvement: other Qualified Code(s): M32.19 - Other organ or system involvement in systemic lupus erythematosus Plan: Continue hydroxychloroquine 400 mg daily. Last eye exam August 2023. He has eye exam scheduled for Aug 28. 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 Discussed importance of back strengthening. He will use Tylenol PRN pain. He is avoiding oral NSAIDs Return to clinic in 3 months (2) Long-term use of hydroxychloroquine: Code(s): Z79.899 - Other [facility] (current) drug therapy Category: Medical Plan: See above (3) Osteoarthritis of hands, bilateral: Comment: Intermittent pain. We discussed importance of occupational therapy in helping to reduce his pain and improving strength. Code(s): M19.041 - Primary osteoarthritis, right hand; M19.042 - Primary osteoarthritis, left hand Category: Medical Plan: OT reordered Start diclofenac gel 1% applied to affected area q.i.d. PRN pain Return to clinic in 6 months Orders: Orders Complete Blood Count Auto Diff Today M32.9 - Systemic lupus erythematosus, unspecified Erythrocyte Sedimentation Rate Today M32.9 - Systemic lupus erythematosus, unspecified Protein Creatinine Ratio, Ur Today M32.9 - Systemic lupus erythematosus, unspecified Alanine Aminotransferase Today M32.9 - Systemic lupus erythematosus, unspecified Complement C3 Today M32.9 - Systemic lupus erythematosus, unspecified Aspartate Amino Transferase Today M32.9 - Systemic lupus erythematosus, unspecified Creatinine Today M32.9 - Systemic lupus erythematosus, unspecified Anti DNA DS Antibody Today M32.9 - Systemic lupus erythematosus, unspecified C Reactive Protein Today M32.9 - Systemic lupus erythematosus, unspecified Complement C4 Today M32.9 - Systemic lupus erythematosus, unspecified UA ClnCatch+Micro w/rflx Cult Today M32.9 - Systemic lupus erythematosus, unspecified Medications: New diclofenac sodium 1% apply to affected area every 4-6 hours PRN pain 2 grams topical QID PRN 100 grams 5RF joint pain Refilled hydroxychloroquine 400 mg (2 x 200 mg) PO DAILY 180 tabs 1RF 90 days M32.19 - Other organ or system involvement in systemic lupus erythematosus Coding Level of Care Code Est Pt Level 4 (38739) Complex EM visit Add On G2211 Diagnoses Systemic lupus erythematosus with other organ involvement, unspecified SLE type M32.19 Systemic lupus erythematosus type: unspecified Systemic lupus erythematosus organ involvement: other Long-term use of hydroxychloroquine Z79.899 Osteoarthritis of hands, bilateral M19.041; M19.042
[2025-08-16 10:00] VITALS: BP 122/80; PULSE 57; O2SAT 98; BMI 31.8
--- OUTSIDE RECORDS SUMMARY | 2025-08-16 11:03 | XMS_ITS | Clinical Summary ---
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 Active cholecalciferol (VITAMIN D-3) 50 mcg (2,000 unit) tablet Take 1 tablet (2,000 Units total) by mouth 1 (one) time each day. 024 Active fexofenadine (TYSHAWN) 180 mg tablet Take 1 tablet (180 mg total) by mouth 1 (one) time each day if needed (jesus manuel). 90 each 1 025 2024 Active levothyroxine (SYNTHROID, LEVOTHROID) 88 mcg tabletIndications :Other specified hypothyroidism Take 1 tablet by mouth once daily 90 tablet 1 Active atorvastatin (LIPITOR) 40 mg tablet Take 1 tablet (40 mg total) by mouth at bedtime. 90 each 025 2025 Active aspirin 81 mg EC tablet Take 1 tablet (81 mg total) by mouth 1 (one) time each day. 90 each 025 2025 Active ticagrelor (BRILINTA) 90 mg tablet Take 1 tablet (90 mg total) by mouth 2 (two) times a day. 180 each 1 025 2024 Active clotrimazole-beta methasone (LOTRISONE) 1-0.05 % cream Apply topically 2 (two) times a day. 30 g 025 Active hydrocortisone (CORTEF) 5 mg tabletIndications :Low serum cortisol level Take 3 tablets (15 mg total) by mouth 1 (one) time each day in the morning. 270 tablet 3 025 Active hydrocortisone (CORTEF) 5 mg tabletIndications :Low serum cortisol level Take 1 tablet (5 mg total) by mouth 1 (one) time each day after lunch. 90 tablet 3 025 Active Additional Information Patient not taking.Reported on 07/12/2025 docosahexaenoic acid/epa (FISH OIL ORAL) Take 2 tablets by mouth 1 (one) time each day. Active folic acid (FOLVITE) 400 mcg tablet Take 1 tablet (0.4 mg total) by mouth 1 (one) time each day. Active allopurinoL (ZYLOPRIM) 300 mg tablet Take 1 tablet by mouth once daily 90 tablet 1 025 Active lisinopriL (PRINIVIL,ZESTRIL ) 20 mg tablet Take 1 tablet by mouth once daily 90 tablet 025 Active lisinopriL (PRINIVIL,ZESTRIL ) 20 mg tablet Take 1 tablet by mouth once daily 90 tablet 025 2024 Discontinued Active Problems Problem Noted Date Diagnosed Date Atherosclerotic heart diseas e of [place] coronary artery without angina pectoris 05/09/2025 Assessment & Plan (05/09/2025 2:27 PM EDT): Patient has history of coronary artery disease status post recent stenting of the LAD. He was left with 70% stenosis in the ostium of D1, 30% stenosis of the mid subsection of the mid left circumflex and 50% stenosis in the proximal subsection of the mid RCA. He denies any exertional anginal symptoms however he is reporting an uncomfortable sensation that occurs in the morning when he first gets out of bed. He denies any symptoms when he is walking or at work. Nonetheless we will arrange for a nuclear stress test to assess for any residual ischemia. We reviewed the importance of him remaining on dual antiplatelet therapy with Brilinta and aspirin for at least 1 year without interruption. Patient has been tolerating his statin and we will update a lipid panel in 1 month. Goal LDL cholesterol is less than 70. He is not on a beta-neftaly. He reports low heart rates at night as captured on his smart watch. Heart rate going down into the 40s while sleeping. He does have obstructive sleep apnea and uses a CPAP. Patient denies any symptoms of syncope or near syncope during the day and his heart rate response to activity appropriately. EKG is stable today showing sinus bradycardia with a heart rate of 55 bpm. Patient is not on any AV thierno blocking agents. He will let me know if he develops any new symptoms. I have reviewed with the patient the importance of a heart healthy lifestyle which includes eating a low-fat low-salt diet, getting regular exercise, maintaining a healthy weight, not smoking, and following up with routine medical care. Chest pain 03/18/2025 Bilateral carpal tunnel syndrome 01/29/2024 Other specified hypothyroidism 12/17/2023 Polyarthralgia 12/17/2023 Transaminitis 11/18/2022 Low serum cortisol level 11/11/2022 Weight loss 12/04/2021 Thrombocytopenia ([facility] V24) 05/20/2021 Overview (06/02/2024): Received IVIG, followed by Dr. Noble History of COVID-19 12/06/2020 Overview (06/02/2024): Oct 2020 Severe obesity (BMI 35.0-39. 9) with comorbidity (CMS/HCC V24, [facility] V28) 08/22/2020 Elevated liver enzymes 10/10/2016 Obstructive sleep apnea 05/14/2016 Overview (06/02/2024): Cx Pulmo 08/19/2016 ResScan 06/25/2016 to 08/13/2016. CPAP@ 6-16/Average 15/Max 15.7. 96% compliant with using the machine for >4 hours/day. Average use is 6.75 hours a night with AHI 0.9. Obesity (BMI 30-39.9) 04/04/2016 Depression with anxiety 04/26/2015 HTN (hypertension), benign 04/26/2015 Panic attacks 04/26/2015 Gout 04/26/2015 Encounters Date Type Department Care Team Description 07/12/2025 1:00 PM EDT Office Visit Pulmonology - [place] [address] [place] [phone] Harini Barnard MD JULIA on CPAP (Primary Dx) 06/01/2025 2:06 PM EDT - 06/01/2025 3:25 PM EDT Emergency [facility] Emergency [address] [place] [phone] Candis Haile DO Laceration of left hand without foreign body, initial encounter (Primary Dx) Discharge Disposition: Home or Self Care 05/27/2025 1:30 PM EDT Ancillary Procedure [facility] [address] [place] [phone] Atherosclerotic heart disease of [place] coronary artery without angina pectoris from Last 3 Months Immunizations Immunization Administration Dates Next Due Influenza trivalent, 0.5mL, preservative free (Fluarix; FluLaval; Fluzone) ages 6mo and older (Afluria) 3 years and older 06/28/2015 Influenza, Unspecified 08/28/2023 [employer] SARS-CoV-2 COVID-19, mRNA, LNP-S, preservative free 04/12/2022,02/27/2022 Tdap Tetanus diptheria acell ular pertussis (Boostrix; Adacel) 7yo and older 06/01/2025,05/18/2020 Surgical History Surgery Date Site/Laterality Comments WRIST FRACTURE SURGERY PROCEDURE:WRIST FRACTURE SURGERY UPPER GASTROINTESTINAL ENDOSCOPY 12/17/2019 PROCEDURE: SC UPPER GI ENDOSCOPY PERFORMED; COMMENT: Normal. Medical History Medical History Date Comments Hypertension DX:Hypertension Gout DX:Gout Anxiety disorder DX:Anxiety diso rder GERD (gastroesophageal reflux disease) DX:GERD (gastroesophageal reflux disease) HTN (hypertension), benign 04/26/2015 DX:HT N (hypertension), benign Thrombocytopenia (CMS/HCC V24) 05/20/2021 D X:Thrombocytopenia (HCC) H/O heart artery stent Family History Medical History Relation Name Comments Lung cancer Brother 1 Diabetes Brother 2 Coronary artery disease Father CABG Diabetes Father Hypertension Father Other: gout Mother Relation Name Status Comments Brother 1 Brother 2 Father Alive Mother Alive Social History Tobacco Use Types Packs/Day Years Used Date Smoking Tobacco: Never Smokeless Tobacco: Never Alcohol Use Standard Drinks/Week Comments Not Currently 0 (1 standard drink = 0.6 oz pur e alcohol) Housing Instability Answer Date Recorde d Are you worried that in the next 2 months you may not have stable housing? No 03/23/2025 Food Access & Nutrition Answer Date Rec orded Do you have access to a vari ety of food including fruits and vegetables? Yes 03/23/2025 Access to Healthcare Answer Date Record ed Within the last 3 months, ho w many times did you visit the emergency department for your medical care? 2 03/23/2025 Health Literacy Answer Date Recorded How often do you need to hav e someone help you when you read instructions, pamphlets, or other written material from your doctor or pharmacy? Never 03/23/2025 Caregiver: How often do you need to have someone help you when you read instructions, pamphlets, or other written material from your doctor or pharmacy? Not on file 03/23/2025 Financial Risk Answer Date Recorded How hard is it for you to pa y for the very basics like food, housing, medical care, and air conditioning / heating? Not very hard 03/23/2025 Transportation Answer Date Recorded Has the lack of transportati on kept you from meetings, work, or from getting things needed for daily living? No Has the lack of transportati on kept you from medical appointments or from getting medications? No 03/23/2025 Social Isolation Answer Date Recorded How often do you feel lonely or isolated from th ose around you? Never 03/23/2025 Food Risk Answer Date Recorded Within the past 12 months we worried whether our food would run out before we got money to buy more. Never true 03/23/2025 Within the past 12 months th e food we bought just didn't last and we didn't have money to get more. Never true 03/23/2025 Dependent Care Answer Date Recorded Do you need help finding or paying for care for your loved ones. For example, child care center assistant director or elderly care for an older adult? No 10/27/2024 Education Answer Date Recorded Do you think completing more education or training, like finishing a GED, going to college, or learning a trade, would be helpful for you? N/A 03/23/2025 Employment and Income Answer Date Recor ded During the last four weeks, have you been actively looking for work? No 03/23/2025 Living Situation Answer Date Recorded What is your living situation? Unrecognized valu e 03/23/2025 Interpersonal Safety Answer Date Record ed Physical Abuse Unrecognized value 03/18/2025 Verbal Abuse Unrecognized value 03/18/2025 Sex and Gender Information Value Date Recorded Sex Assigned at Not on file Legal Sex Male 4:52 AM EST Gender Identity Not on file Sexual Orientation Not on file Obstetrics History Last Filed Vital Signs Vital Sign Reading Time Taken Comments Blood Pressure 124/76 07/12/2025 1:12 PM EDT Pulse 63 07/12/2025 1:12 PM EDT Temperature 36.5 C (97.7 F) 07/12/2025 1:12 PM EDT Respiratory Rate 20 07/12/2025 1:12 PM EDT Oxygen Saturation 98% 07/12/2025 1:12 PM EDT Inhaled Oxygen Concentration - - Weight 93.2 kg (205 lb 6.4 oz) 07/12/2025 1:12 P M EDT Height 170.2 cm (5' 7 ) 07/12/2025 1:12 PM EDT Body Mass Index 32.17 07/12/2025 1:12 PM EDT Plan of Treatment Upcoming Encounters Date Type Department Care Team (Late st Contact Info) Description 09/06/2025 8:30 AM EST Office Visit Internal Medicine [facility] [address] [place] [phone] Mona Dawson MD [address] [place] [phone] 03/24/2026 2:30 PM EDT Office Visit [facility] Hematology Oncology [address] [place] [phone] Mendel Soliz MD [address] [place] [address] 07/17/2026 11:45 AM EDT Office Visit Pulmonology - [address] [place] [address] Harini Barnard MD [facility] [place] [address] Health Maintenance Due Date Last Done Comments Colorectal Cancer Screening: Colonoscopy 1975 Hepatitis B Vaccines (1 of 3 - 19+ 3-dose series) 1994 COVID-19 Vaccine (3 - 2024- season) 2025 04/12/2022, 02/27/2022 Influenza Vaccine (#1) 2025 , 06/28/2015, 09/22/2014, Additional history exists Hypertension/CHF/CAD Annual BMP Blood Test 03/19/2026 03/19/2025, 03/18/2025, 01/06/2025, Additional history exists Social Influencers of Health Screening 03/23/2026 03/23/2025 Cholesterol Screening (Lipid Panel) 06/13/2030 06/13/2025, 03/19/2025, 12/17/2023 DTaP,Tdap,and Td Vaccines (4 - Td or Tdap) 06/01/2035 06/01/2025, 05/18/2020, 01/01/2011 RSV Immunization Adult Patients (1 - 1-dose 75+ series) 2050 Depression Screening Completed 10/27/2024 HIV Screening Completed 10/28/2024 Hepatitis C Screening Completed 10/28/2024 HIB Vaccines Aged Out No longer eligi ble based on patient's age to complete this topic HPV Vaccines Aged Out No longer eligi ble based on patient's age to complete this topic Hepatitis A Vaccines Aged Out No long er eligible based on patient's age to complete this topic IPV Vaccines Aged Out No longer eligi ble based on patient's age to complete this topic MMR Vaccines Aged Out No longer eligi ble based on patient's age to complete this topic Meningococcal ACWY Vaccine Aged Out N o longer eligible based on patient's age to complete this topic Meningococcal B Vaccine Aged Out No l onger eligible based on patient's age to complete this topic Pneumococcal Vaccine: Pediatrics (0 to 5 Years) and At-Risk Patients (6 to 49 Years) Aged Out No longer eligible based on patient's age to complete this topic RSV Immunization Patients Under 20 months Aged Out No longer eligible based on patient's age to complete this topic Varicella Vaccines Aged Out No longer eligible based on patient's age to complete this topic Procedures Procedure Name Priority Date/Time Associated Diagnosis Comments CBC WITH AUTO DIFFERENTIAL Routine 07/21/2025 11:48 AM EDT Thrombocytopenia (CMS/HCC V24) CBC AND DIFFERENTIAL Routine 07/21/2025 11:48 AM EDT Thrombocytopenia (CMS/HCC V24) CBC WITH AUTO DIFFERENTIAL Routine 06/13/2025 8:46 AM EDT Thrombocytopenia (CMS/HCC V24) LIPID PANEL WITH REFLEX TO DIRECT LDL Routine 06/13/2025 8:46 AM EDT Atherosclerotic heart disease of [place] coronary artery without angina pectoris CBC AND DIFFERENTIAL Routine 06/13/2025 8:46 AM EDT Thrombocytopenia (CMS/HCC V24) XR HAND 3+ VIEWS LEFT STAT 06/01/2025 2:18 PM EDT NM EXERCISE STRESS TEST W/ MYOCARDIAL PERFUSION Routine 05/27/2025 3:41 PM EDT Atherosclerotic heart disease of [place] coronary artery without angina pectoris CBC WITH AUTO DIFFERENTIAL Routine 05/16/2025 1:01 PM EDT Thrombocytopenia (CMS/HCC V24) CBC AND DIFFERENTIAL Routine 05/16/2025 1:01 PM EDT Thrombocytopenia (CMS/HCC V24) BASIC METABOLIC PANEL Routine 03/19/2025 5:24 AM EDT HEPATITIS C ANTIBODY Routine 10/28/2024 9:31 AM EST Unprotected sexual intercourse HIV 1, 2 ANTIBODY, P24 ANTIGEN WITH REFLEX TO DIFFERENTIATION Routine 10/28/2024 9:31 AM EST Unprotected sexual intercourse from Last 3 Months or Most Recently Relevant to Health Maintenance Results * (ABNORMAL) CBC auto differential (07/21/2025 11:48 AM EDT) Only the most recent of3 resultswithin the time period is included. WBC 8.3 4.8 - 10.8 K/mcL LAB HEMETOLOGY METHOD 07/21/2025 12:44 PM EDT [facility] RBC 4.60 4.50 - 5.50 M/mcL LAB HEMETOLOGY METHOD 07/21/2025 12:44 PM [facility] Hemoglobin 13.1(L) 13.5 - 17.5 g/dL LAB HEMETOLOGY METHOD 07/21/2025 12:44 PM [facility] Hematocrit 39.4(L) 42.0 - 54.0 % LAB [facility] MCV 85.1 79.0 - 98.0 FL LAB [facility]OLOGY METHOD [facility]2025 [facility] MCH 28.3 27.0 - 32.0 pcg LAB HEMETOLOGY METHOD 07/21/2025 12:44 PM [facility] MCHC 33.2 32.0 - 37.0 g/dL LAB HEMETOLOGY METHOD 07/21/2025 12:44 PM EDT [facility] RDW 13.1 11.0 - 15.0 % LAB HEMETOLOGY METHOD 07[facility]21[facility]2025 12[facility] Platelets 168 130 - 400 K/mcL LAB HEMETOLOGY METHOD 07/21[facility]2025 12[facility] MPV 10.6 7.0 - 11.0 FL LAB HEMETOLOGY METHOD 07/21/2025 12:44 PM EDT [facility] NRBC 0.0 <1.0 % LAB HEMETOLOGY METHOD 07/21/2025 12:44 PM [facility] NRBC Absolute 0.00 <0.10 K/mcL LAB HEMETOLOGY METHOD 07/21/2025 12:44 PM [facility] Neutrophils Relative 70.7 % LAB HEMETOLOGY METHOD 07/21/2025 12:44 PM [facility] Lymphocytes Relative 15.7 % LAB HEMETOLOGY METHOD 07/21/2025 12:44 PM [facility] Monocytes Relative 5.5 % LAB HEMETOLOGY METHOD 07/21/2025 12:44 PM [facility] Eosinophils Relative 7.2 % LAB HEMETOLOGY METHOD 07/21/2025 12:44 PM [facility] Basophils Relative 0.7 % LAB HEMETOLOGY METHOD 07/21/2025 12:44 PM [facility] Immature Granulocytes Relative 0.2 % LAB HEMETOLOGY METHOD 07/21/2025 12:44 PM [facility] Neutrophils Absolute 5.85 1.50 - 7.00 K/mcL LAB HEMETOLOGY METHOD 07/21/2025 12:44 PM [facility] Lymphocytes Absolute 1.30 1.00 - 5.00 K/mcL LAB HEMETOLOGY METHOD 07/21/2025 12:44 PM [facility] Monocytes Absolute 0.46 0.20 - 1.00 K/mcL LAB HEMETOLOGY METHOD 07/21/2025 12:44 PM [facility] Eosinophils Absolute 0.60(H) 0.00 - 0.50 K/mcL LAB HEMETOLOGY METHOD 07/21/2025 12:44 PM [facility] Basophils Absolute 0.06 0.00 - 0.20 K/mcL LAB HEMETOLOGY METHOD 07/21/2025 12:44 PM EDT [facility] Immature Granulocytes Absolute 0.02 0.00 - 0.03 K/mcL LAB HEMETOLOGY METHOD 07/21/2025 12:44 PM [facility] Blood Venous blood specimen / Unknown Venipuncture / Unknown 07/21/2025 11:48 AM EDT 07/21/2025 12:10 PM EDT Mendel Soliz MD LAB BLOOD ORDERABLE S Final Result [facility] [address] [place] [address], [place] [phone] * Lipid panel with reflex to direct LDL (06/13/2025 8:46 AM EDT) Cholesterol 75 0 - 200 mg/dL LAB CHEMISTRY METHOD 06/13/2025 12:03 PM [facility] Triglycerides 60 0 - 150 mg/dL LAB CHEMISTRY METHOD 06/13/2025 12:03 PM [facility] HDL 41 >=40 mg/dL LAB CHEMISTRY METHOD 06/13/2025 12:03 PM [facility] LDL Calculated 22 0 - 100 mg/dL LAB CHEMISTRY METHOD 06/13/2025 12:03 PM [facility] Comment:Estimated LDL Calcul ated using equation: Total cholesterol - HDL cholesterol - (Triglycerides/5) VLDL Cholesterol Shon 12 mg/dL LAB CHEMISTRY METHOD 06/13/2025 12:03 PM [facility] Non HDL Chol. (LDL+VLDL) 34 <145 mg/dL LAB CHEMISTRY METHOD 06/13/2025 12:03 PM [facility] Chol/HDL Ratio 1.8 0.0 - 4.4 LAB CHEMISTRY METHOD 06/13/2025 12:03 PM [facility] Blood Venous blood specimen / Unknown Venipuncture / Unknown 06/13/2025 8:46 AM EDT 06/13/2025 11:21 AM EDT Fiona Rossy [employer] LAB BLOOD ORDERABLES Final R esult [facility] [address] [place] [address], * XR Hand 3+ Views Left (06/01/2025 2:18 PM EDT) Anatomical Region Laterality Modality Upper Extremities, Hand Left Radiogra phic Imaging 06/01/2025 2:32 PM EDT Impressions 06/01/2025 2:34 PM EDT No acute findings. 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 -------- FINAL REPORT -------- Dictated By: Elpidio Allen Dictated Date: 06/01/2025 14:32 ET Assigned Physician: Elpidio Allen Reviewed and Electronically Signed By: Elpidio Allen Signed Date: 06/01/2025 14:34 ET Workstation ID: [id number] Transcribed By: Self Edit Transcribed Date: 06/01/2025 14:32 ET Narrative 06/01/2025 2:34 PM EDT PROCEDURE: Radiographs of the left hand. HISTORY: Laceration. COMPARISON: None. FINDINGS: Partially visible ORIF hardware in the distal radius and ulna. Remote fracture of the ulnar styloid. Mild degenerative changes of the radiocarpal joint and throughout the carpus, with moderate degenerative changes of the triscaphe and 1st carpometacarpal joint. Multifocal degenerative changes of the interphalangeal joints, with multifocal rounded defects associated with the interphalangeal joints and metacarpal heads suggestive of erosions. No fracture or malalignment. No radiopaque foreign body. Procedure Note Elpidio Allen MD - 06/01/2025 PROCEDURE: Radiographs of the left hand. HISTORY: Laceration. COMPARISON: None. FINDINGS: Partially visible ORIF hardware in the distal radius and ulna. Remotefracture of the ulnar styloid. Mild degenerative changes of theradiocarpal joint and throughout the carpus, with moderate degenerativechanges of the triscaphe and 1st carpometacarpal joint. Multifocaldegenerative changes of the interphalangeal joints, with multifocalrounded defects associated with the interphalangeal joints and metacarpalheads suggestive of erosions. No fracture or malalignment. No radiopaqueforeign body. IMPRESSION: No acute findings. 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 -------- FINAL REPORT -------- Dictated By: Elpidio Allen Dictated Date: 06/01/2025 14:32 ET Assigned Physician: Elpidio Allen Reviewed and Electronically Signed By: Elpidio Allen Signed Date: 06/01/2025 14:34 ET Workstation ID: [id number] Transcribed By: Self Edit Transcribed Date: 06/01/2025 14:32 ET Candis Haile DO IMG XR PROCEDURES Final Resul t * NM EXERCISE STRESS TEST W/ MYOCARDIAL PERFUSION (05/27/2025 3:41 PM EDT) Exercise/injec tion duration (min) 9 CV PACS STRESS Exercise/injec tion duration (sec) 0 CV PACS STRESS Peak SBP 170 mmHg CV PACS STRESS Peak DBP 80 mmHg CV PACS STRESS Peak HR 142 bpm CV PACS STRESS Baseline HR 71 bpm CV PACS STRESS Baseline SBP 126 mmHg CV PACS STRESS Baseline DBP 71 mmHg CV PACS STRESS Estimated workload 10.1 METS CV PACS STRESS Percent HR 83 % CV PACS STRESS Rate Pressure Product 24,140.0 mmHg*bpm CV PACS STRESS Target HR 145 bpm CV PACS STRESS Angina Index 0 CV PACS STRESS Max HR Percent 83 % CV PA CS STRESS O2 sat rest 99 % CV PACS STRESS TID 1.02 CV PACS STRESS Nuc Stress EF 65 % CV PAC S STRESS Nuc Rest EF 64 % CV PACS STRESS BSA 2.11 m2 CV PACS STRESS Anatomical Region Laterality Modality Nuclear Medicine 05/27/2025 2:14 PM EDT 05/27/2025 2:45 PM EDT Narrative 05/30/2025 10:00 AM EDT Raw Images and CineLoop Images: Impression: 1. Normal exercise stress test with nuclear imaging. 2. The patient had no chest pain during the test. He exercised for 9 minutes 0 seconds at a workload of 10.1 METS. 3. EKG at baseline was normal sinus rhythm during exercise, upsloping ST depression in the inferior leads not meeting criteria for ischemic changes noted. 4. LV Cavity size is normal. 5. No transient ischemic dialatation (TID 1.02) 6, CT scan showed significant calcification of the LAD noted. LCx and RCA has minimal calcification. 7. Raw perfusion imgaes revelaed mild hypoperfusion of the basal to mid inferior wall at rest which partially improves with stress indicating artifact. When attenuation correction is applied, most of this hypoperfusion improved once again indicating extracardiac soft tissue attenuation defect. Hence no ischemia or infarction. 8. Gated SPECT imaging was performed which demonstrated normal LV wall motion and thickening with a calculated LVEF of 64% at rest and 65% at stress. Stress Findings A Jignesh protocol stress test was performed. Overall, the patient's exercise capacity was average. Total stress time was 9 min and 0 sec. The patient experienced no angina during the test. The test was stopped because the patient experienced fatigue. The patient's hemodynamic response was adequate for diagnosis. Blood pressure demonstrated a normal response. Heart rate demonstrated a normal response. The patient reported no symptoms during the stress test. ECG 49 yo male with a history of HTN, CAD and obesity referred for CP. The ECG shows normal sinus rhythm. The ECG axis is normal. There were no arrhythmias during stress. There is elevation noted to ST segment (aVR), and depression noted to ST segment upward-sloping (II, III and aVF) during stress. There were no arrhythmias during recovery. The result of the stress ECG was abnormal but not diagnostic with slow, upsloping ST depression. Nuclear Study Quality Study technique: MPI, SPECT, multi, rest and stress, 1 day and gated. Overall image quality is good. CT attenuation correction was utilized. No radiopharmaceutical dose was extravasated. Stress Function Comments Stress ejection fraction is 65%. Rest Function Comments Resting ejection fraction was 64%. us Fiona Bartolucci [employer] CV STRESS PROCEDURES Final R esult * Basic metabolic panel (03/19/2025 5:24 AM EDT) Sodium 138 133 - 145 mmol/L LAB CHEMISTRY METHOD 03/19/2025 7:33 AM [facility] Potassium 3.7 3.5 - 5.5 mmol/L LAB CHEMISTRY METHOD 03/19/2025 7:33 AM [facility] Chloride 106 96 - 110 mmol/L LAB CHEMISTRY METHOD 03/19/2025 7:33 AM [facility] CO2 26 21 - 32 mmol/L LAB CHEMISTRY METHOD 03/19/2025 7:33 AM [facility] Anion Gap 6 3 - 11 LAB CHEMISTRY METHOD 03/19/2025 7:33 AM [facility] Glucose 94 70 - 100 mg/dL LAB CHEMISTRY METHOD 03/19/2025 7:33 AM [facility] BUN 14 5 - 25 mg/dL LAB CHEMISTRY METHOD 03/19/2025 7:33 AM [facility] Creatinine 1.01 0.70 - 1.30 mg/dL LAB CHEMISTRY METHOD 03/19/2025 7:33 AM [facility] eGFR 91 >=60 mL/min/1. 73m2 LAB CHEMISTRY METHOD 03/19/2025 7:33 AM [facility] Comment:Calculation based on the Chronic Kidney Disease Epidemiology Collaboration (CKD-EPI) equation refit without adjustment for race. BUN/Creatinine Ratio 13.9 LAB CHEMISTRY METHOD 03/19/2025 7:33 AM [facility] Calcium 8.7 8.5 - 10.5 mg/dL LAB CHEMISTRY METHOD 03/19/2025 7:33 AM [facility] Blood Venous blood specimen / Unknown Venipuncture / Unknown 03/19/2025 5:24 AM EDT 03/19/2025 6:23 AM EDT Estrada Celis MD LAB BLOOD ORDERABLES Final Result Performing Organization Address City/[facility]/ZIP Co de Phone Number [facility] [address] [place] [address], [place] [phone] * Hepatitis C antibody (10/28/2024 9:31 AM EST) Hepatitis C Antibody Negative Negative LAB CHEMISTRY METHOD 10/28/2024 2:28 PM EST [facility] Blood Venous blood specimen / Unknown Venipuncture / Unknown 10/28/2024 9:31 AM EST 10/28/2024 12:51 PM EST Mona Dawson MD LAB BLOOD ORDERABLES Final Resul t Performing Organization Address [facility] de Phone Number [facility] [address] [place] [id number], [place] [phone] * HIV 1,2 antibody, p24 antigen with reflex to differentiation (10/28/2024 9:31 AM EST) Pathologist [facility] HIV Combo AB/AG Negative Negative LAB CHEMISTRY METHOD 10/28/2024 2:28 PM EST [facility] Blood Venous blood specimen / Unknown Venipuncture / Unknown 10/28/2024 9:31 AM EST 10/28/2024 12:51 PM EST Narrative [facility] - 10/28/2024 2:28 PM EST This assay is a 4th generation assay allowing for earlier detection of HIV infection by detecting the presence of the HIV-1 p24 antigen as well as the traditional antibodies to HIV type 1 (including group O) and type 2. Use of a 4th generation assay is the current CDC recommendation for HIV screening. Mona Dawson MD LAB BLOOD ORDERABLES Final Resul t Performing Organization Address [facility] Co de Phone Number [facility] [address] [place] [phone], from Last 3 Months or Most Recently Relevant to Health Maintenance Insurance [facility] GENERIC Advance Directives * Full Code - Default (Latest Code Status on File) Date Activated Date Inactivated Comments 03/18/2025 7:26 PM 03/20/2025 4:28 PM This is orde r is used when code status has not been discussed with the patient, or code status is otherwise unknown/unconfirmed To update the patient's code status, place a code status order. Do not modify or discontinue any currently active code status orders. Care Teams [employer] Relationship Specialty Start Date End Date Mona Dawson MD [address] [place] [phone] PCP - General 04/14/23
== END 2025-08-16 10:31 | disposition home or self-care (01) ==
LOC: HO.RHES 09:48
PROVIDERS: PCP Internal Medicine; Visit Provider Internal Medicine Rheumatology
DX: M32.19 Other organ or system involvement in systemic lupus erythematosus (principal); Z79.899 Other long term (current) drug therapy; M19.041 Primary osteoarthritis, right hand; M19.042 Primary osteoarthritis, left hand
CPT/HCPCS: 99214

== ENCOUNTER 2025-08-16 09:48 | Outpatient (REF) | payer BC, SELFPAY ==
[2025-08-16 12:56] LABS: MANUAL DIFF FLAG NO
[2025-08-16 13:07] LABS: Hematocrit 39.0 % (42.0-52.0); Hemoglobin 13.3 g/dl (14.0-18.0); Imm Gran Abs Auto 0.02 X10*3/uL (0.00-0.03); Imm Gran Pct Auto 0.3 % (0.0-0.4); Lymphocytes Absolute Auto 1.2 X10*3/uL (1.2-4.9); Mean Corpuscular HGB Conc 34.1 g/dl (31.0-36.0); Mean Corpuscular Hemoglobin 28.2 pg (27.0-33.0); Mean Corpuscular Volume 82.8 fL (80.0-98.0); NRBC Abs Auto 0.000 X10*3/uL (0.0-0.012); NRBC Pct Auto 0.0 /100WBC (0.0-0.2); Platelet Count 177 X10*3/uL (160-400); Red Blood Count 4.71 X10*6/uL (4.60-5.80); White Blood Count 6.6 X10*3/uL (4.8-10.8)
[2025-08-16 13:43] LABS: Appearance Urine Clear; Glucose Urine UA Negative (Negative); PH 5.5 (5.0-9.0); Specific Gravity - Urine 1.020 (1.005-1.025)
[2025-08-16 14:28] LABS: Total Protein Urine Random < 7 mg/dL (<12)
[2025-08-16 17:58] LABS: Alanine Aminotransferase 42 U/L (0-40); Aspartate Amino Transferase 52 U/L (5-37); Estimated Glomerular Filt Rate > 60
== END 2025-08-16 09:49 | disposition home or self-care (01) ==
LOC: HO.HKASLDS 09:48
PROVIDERS: PCP Internal Medicine; Visit Provider Internal Medicine Rheumatology
DX: M32.19 Other organ or system involvement in systemic lupus erythematosus (principal); M19.041 Primary osteoarthritis, right hand; M19.042 Primary osteoarthritis, left hand; Z51.81 Encounter for therapeutic drug level monitoring; Z79.899 Other long term (current) drug therapy
CPT/HCPCS: 36415; 81001; 82565; 82570; 84156; 84450; 84460; 85025; 85652; 86140; 86160; 86225